=== PATIENT | male | born 1995 | race Caucasian/White ===

== ENCOUNTER 2020-10-10 08:28 | Emergency (ER) | payer MEDICAID, SELFPAY ==
[2020-10-10 08:28] VITALS: BP 112/76; PULSE 87; RESP 16; TEMP 36.6; O2SAT 98; BMI 29.0
--- NOTE | 2020-10-10 08:29 | ECG_ITS ---
[facility] Test Date: 2020-10-10 Pat Name: MARS SITER Department: Room: Gender: Male Manager Respiratory: : 1995 Requested By: Mauri Lugo Order Number: [id number] Reading MD: DESIREE GARCIA Measurements Intervals [place] Rate: 71 P: 58 CA: 178 QRS: 46 QRSD: 97 T: 51 QT: 357 QTc: 388 Interpretive Statements SINUS RHYTHM No previous ECG available for comparison Electronically Signed On 10-10-2020 20:17:05 CDT by DESIREE GARCIA [id number]
--- NOTE | 2020-10-10 08:32 | PC.NURSE ---
Seizure pads brought to patients room at this time. Physician reported no need for seizure pads at this time.
[2020-10-10 08:46] LABS: Basophils % 0.4 %; Eosinophils # 0.1 10^3/uL (0.0-0.8); Eosinophils % 1.4 %; Hemoglobin 16.6 g/dL (11.7-16.6); Lymphocytes # 1.3 10^3/uL (0.8-4.8); Lymphocytes % 17.3 %; Mean Corpuscular HGB Conc 34.6 g/dL (30.0-36.0); Mean Corpuscular Hemoglobin 29.9 pg (28.0-34.0); Mean Corpuscular Volume 86.5 fL (80-94); Mean Platelet Volume 10.8 fL (7.4-10.4); Monocytes # 0.7 10^3/uL (0.2-0.9); Monocytes % 9.1 %; Neutrophils # 5.45 10^3/uL (1.8-7.7); Neutrophils % 71.5 %; Nucleated Red Blood Cells % 0 %; Platelet Count 194 10^3/cmm (130-400); Red Blood Count 5.55 10^6/uL (4.1-5.3); Red Cell Distribution Width 11.8 % (12.1-15.1); White Blood Count 7.6 10^3/uL (4.0-10.0)
--- NOTE | 2020-10-10 08:53 | W.ED.SEIZURE ---
HPI - Seizure General: Chief Complaint: Seizure Stated Complaint: SEIZURE Time Seen by Provider: 10/10/20 08:28 History of Present Illness: HPI Narrative: 25-year-old male presents emergency room after having what he describes as a pseudoseizure. He states he gets is in response to anxiety. He did hit his head on the edge of a cabinet when he stood up this morning but did not lose consciousness he is not on any blood thinners. He is on Topamax and Keppra. He was previously evaluated in [place] by neurology and they had told him he had pseudoseizures. MD complaint: other (Pseudoseizures.) Onset (ago): minute(s) Witnessed: Yes - by Bystander Trauma: No Seizure History: No Place: Work Possible Precipitating Event: stress Associated symptoms: Deny chest pain, chills, confusion, cough, diaphoresis, fever(s), anorexia, malaise, rash, short of breath, syncope or weakness Treatments prior to arrival: none Review of Systems Const: Denies: fever(s), chills, malaise or diaphoresis ENMT: Denies: throat pain, ear or mastoid pain, nasal discharge or nasal congestion Card: Denies: chest pain or syncope Resp: Denies: dyspnea, productive cough or non-productive cough GI: Denies: abdominal pain, nausea, vomiting, hematemesis, coffee ground emesis, diarrhea, constipation, bloating, hematochezia or melena : Denies: flank pain, dysuria, urinary frequency or urinary urgency Skin/Breast: Denies: rash or pruritus Neuro: Denies: confusion Physical Exam Const: COMMON NORMALS: average body habitus, patient oriented x3 and alert GENERAL APPEARANCE: cooperative, comfortable, well kempt and well developed NUTRITIONAL APPEARANCE: obese ORIENTATION/CONSCIOUSNESS: Yes awake, Yes oriented to person and Yes oriented to place HENMT: COMMON NORMALS: normocephalic, atraumatic, EAC's normal, TM's normal bilaterally, Normal external nose present, moist oral mucous membranes and oropharynx normal HEAD & SCALP: normocephalic and atraumatic NOSE: Normal external nose present EXTERNAL AUDITORY CANAL: EAC's normal TYMPANIC MEMBRANE: TM's normal bilaterally MOUTH: Normal oral and palatal mucosa present, lip normal and tongue normal THROAT: posterior oropharynx normal and tonsils normal Eye: COMMON NORMALS: Equal, round and reactive pupils present, EOMs intact bilaterally, conjunctivae normal and no scleral icterus CONJUNCTIVA: Yes conjunctivae normal PUPIL: Yes Equal, round and reactive pupils present Neck/C-Spine: COMMON NORMALS: full ROM, no lymphadenopathy, supple, no meningeal signs and Thyroid normal THYROID: Thyroid normal and asymmetrical Lymph: LYMPHATIC: no lymphadenopathy noted Resp: COMMON NORMALS: normal respiratory effort, No retractions, No use of accessory muscles and clear to auscultation bilaterally AUSCULTATION: clear to auscultation bilaterally Cardio: COMMON NORMALS: regular rate and regular rhythm RATE: regular rate RHYTHM: regular rhythm HEART SOUNDS: no murmurs GI: COMMON NORMALS: Normal to inspection, nondistended, normoactive bowel sounds present, Soft to palpation and No hepatosplenomegaly present PALPATION: Yes Soft to palpation and Yes No hepatosplenomegaly present : COMMON NORMALS: Yes no CVA tenderness BLADDER/KIDNEY EXAM: Yes no CVA tenderness Back/Pelvis: COMMON NORMALS: no CVA tenderness LUMBAR SPINE/LOWER BACK: Yes normal to inspection Extremity: COMMON NORMALS: no clubbing, cyanosis or edema, no calf tenderness and no pedal edema Neuro: COMMON NORMALS: patient oriented x3 SENSORIUM/ORIENTATION: Yes alert, Yes oriented to person and Yes oriented to place MENINGEAL SIGNS: Yes no meningeal signs Psych: APPEARANCE: Yes well kempt Skin: COMMON NORMALS: no rashes or lesions noted and turgor normal GENERAL SKIN EXAM: no rashes or lesions noted and turgor normal Course Vital Signs: Vital signs: Vital Signs Temperature 97.8 F 10/10/20 08:28 Pulse Rate 72 10/10/20 09:30 Respiratory Rate 20 H 10/10/20 09:30 Blood Pressure 105/69 10/10/20 09:30 Pulse Oximetry 96 10/10/20 09:30 MDM - Seizure MDM Narrative: Medical decision making narrative: Patient readily admits he has pseudoseizures when I discussed with him he understands are precipitated by stress. He has had these before. He denies missing any medications he denies any change in medications. He recently moved here he does not have a neurologist locally. We will try to get him set up with the PCP and neurologist. Lab Data: Attestation: I reviewed the patient's lab results. Labs: Lab Results 10/10/20 10/10/20 Range/Units 08:00 08:00 WBC 7.6 (4.0-10.0) 10^3/ uL RBC 5.55 H (4.1-5.3) 10^6/u L Hgb 16.6 (11.7-16.6) g/dL Hct 48.0 (42.0-52.0) % MCV 86.5 (80-94) fL MCH 29.9 (28.0-34.0) pg MCHC 34.6 (30.0-36.0) g/dL RDW 11.8 L (12.1-15.1) % Plt Count 194 (130-400) 10^3/c mm MPV 10.8 H (7.4-10.4) fL Neut % (Auto) 71.5 % Lymph % (Auto) 17.3 % Reeves % (Auto) 9.1 % Eos % (Auto) 1.4 % Baso % (Auto) 0.4 % Neut # (Auto) 5.45 (1.8-7.7) 10^3/u L Lymph # (Auto) 1.3 (0.8-4.8) 10^3/u L Reeves # (Auto) 0.7 (0.2-0.9) 10^3/u L Eos # (Auto) 0.1 (0.0-0.8) 10^3/u L Baso # (Auto) 0.0 (0.0-0.1) 10^3/u L Nucleated RBC % (a uto) 0 % Nucleated RBCs # 0.0 /100WBC Sodium 141 (136-145) mmol/L Potassium 3.4 L (3.5-5.1) mmol/L Chloride 106 (98-107) mmol/L Carbon Dioxide 21 L (22-29) mmol/L Anion Gap 17.4 (5-19) BUN 11 (6-20) mg/dL Creatinine 1.1 (0.7-1.2) mg/dL GFR Calculation 83.0 L (90-130) mL/min Glucose 94 (65-115) mg/dL Calculated Osmolal ity 291 (285-295) mOsm/k g Calcium 9.4 (8.5-10.5) mg/dL Magnesium 2.2 (1.7-2.3) mg/dL Total Bilirubin 1.2 (0.15-1.2) mg/dL AST 17 (0-40) U/L ALT 27 (0-41) U/L Alkaline Phosphata se 77 (40-130) IU/L Creatine Kinase 91 (39-308) U/L Total Protein 7.2 (6.6-8.7) g/dL Albumin 4.8 (3.5-5.2) g/dL Globulin 2.4 (1.3-4.6) g/dL Discharge Plan Discharge Patient Disposition: Home Clinical Impression: Psychosomatic seizure Condition: Stable Discharge Orders: Discharge ED (Routine); Ordered 10/10/20 Ordered By: Mauri Godoy Discharge Diet: Usual diet Discharge Activity: Resume usual activity Patient Instructions: Opioid Safety Stand Alone Forms: Work/School Release Coding Level of Care Code ED Deputy Attorney General for Maurisio Fwd Exam Comprehensive
[2020-10-10 08:58] VITALS: BP 112/76; PULSE 73; RESP 18; O2SAT 97
[2020-10-10 09:03] LABS: Alanine Aminotransferase 27 U/L (0-41); Albumin Level 4.8 g/dL (3.5-5.2); Alkaline Phosphatase 77 IU/L (40-130); Anion Gap 17.4 (5-19); Aspartate Amino Transferase 17 U/L (0-40); Blood Urea Nitrogen 11 mg/dL (6-20); Calcium 9.4 mg/dL (8.5-10.5); Carbon Dioxide 21 mmol/L (22-29); Chloride 106 mmol/L (98-107); Creatine Phosphokinase 91 U/L (39-308); Globulin 2.4 g/dL (1.3-4.6); Glucose 94 mg/dL (65-115); Magnesium 2.2 mg/dL (1.7-2.3); Osmolality Calculated 291 mOsm/kg (285-295); Potassium 3.4 mmol/L (3.5-5.1); Sodium 141 mmol/L (136-145); Total Bilirubin 1.2 mg/dL (0.15-1.2); Total Protein 7.2 g/dL (6.6-8.7)
[2020-10-10 09:29] VITALS: BP 105/69; PULSE 90; RESP 18; O2SAT 95
[2020-10-10 09:30] VITALS: BP 105/69; PULSE 72; RESP 20; O2SAT 96
--- NOTE | 2020-10-12 12:54 | DCPLANNER ---
Addendum entered by Marilee Huetra 10/13/20 10:43: Patient called family service caseworker back, stating that he just moved here and does not have a primary care physician or insurance at this time. web services manager will mail both of the financial adviser applications to the patient to fill out and turn in. Patient will fill out the applications, and turn them in. Patient stated that when he found out where he was on the slide that he would call family service caseworker to get established with a primary care physician, and a referral to neurology. Original Note: web services manager had message to speak with patient about getting established with a primary care physician and about a referral to neurology. web services manager called phone number [phone], unable to speak with patient at this time, a voicemail was left for patient to return family caseworker phone call.
[2020-10-13 20:03] LABS: Levetiracetam Keppra 11.6 mcg/mL
== END 2020-10-10 09:29 | disposition home or self-care (01) ==
PROVIDERS: Emergency Provider Family Medicine
DX: G40.89 Other seizures (principal)
CPT/HCPCS: 80053; 80177; 82550; 83735; 85025; 93005; 99283

== ENCOUNTER → 2020-11-30 09:13 | Outpatient (BNVA) | payer OTHER, SELFPAY | PROVIDERS: Visit Provider Specialist | DX: G40.109 Localization-related (focal) (partial) symptomatic epilepsy and epileptic syndromes with simple partial seizures, not intractable, without status epilepticus (principal); G43.019 Migraine without aura, intractable, without status migrainosus; F17.210 Nicotine dependence, cigarettes, uncomplicated | CPT/HCPCS: 99204 ==

== ENCOUNTER 2020-12-06 12:42 | Emergency (ER) | payer OTHER, SELFPAY ==
[2020-12-06 12:58] VITALS: BP 106/68; PULSE 70; RESP 16; TEMP 36.6; O2SAT 98; BMI 26.4
[2020-12-06 13:46] VITALS: BP 107/70; PULSE 75; RESP 20; O2SAT 98
--- NOTE | 2020-12-06 13:48 | CT_ITS ---
WS: [id number] CT HEAD NONCONTRAST HISTORY: seizure, struck head TECHNIQUE: Contiguous axial imaging performed through the brain in 2.5 mm imaging. Bone and soft tiss ue windows. Sagittal and coronal reformats reviewed. All CT scans at [facility] use at le ast one of these dose optimization techniques: automated exposure control; mA and/or kV adjustment pe r patient size (includes targeted exams where dose is matched to clinical indication); or iterative r econstruction. DLP: 928.57 mGy.cm COMPARISON: None available. No acute intracranial hemorrhage, midline shift or mass effect. No atrophy or prior infarcts or herniation. Ventricles: Normal size with no hydrocephalus. Paranasal sinuses: As visualized are clear. Mastoid air cells: Well pneumatized. Calvarium and scalp: Skull is intact with no soft tissue edema or swelling. CT/CT head wo con* [id number] IMPRESSION: Negative head CT.
--- NOTE | 2020-12-06 13:49 | ED_ITS ---
HPI - Seizure General: Chief Complaint: Seizure Stated Complaint: POST SEIZURE Time Seen by Provider: 12/06/20 13:36 Source: patient Mode of arrival: ambulatory Limitations: no limitations History of Present Illness: HPI Narrative: Patient is a 25-year-old male who presents to ED today with a complaint of a seizure that happened at work. Patient states he was recently diagnosed with temporal lobe epilepsy by Dr. Dumont. He saw her in office 6 days ago. He states he is currently taking 1500 mg Keppra and 200 mg Topamax. He states while at work he began to develop a headache and left sided weakness. He states the next thing he knew he was waking up on the ground and coworkers stated he had had a seizure. He reports he was told he had generalized clonic tonic movements. He was told episode lasted approximately 1 to 2 minutes. He states he struck his head but was wearing a hard helmet. He did/currently experiencing post ictal confusion and a headache although this is improving. There was no report of cyanosis. No incontinence. He denies biting his tongue or other intra oral injury. MD complaint: seizure Onset (ago): hour(s) Description of Episode: loss of consciousness and tonic-clonic movement Witnessed: Yes - by Bystander Trauma: Yes (reports stuck head) Seizure History: Yes Place: Work Possible Precipitating Event: none Associated symptoms: Reports no associated symptoms; Deny chest pain, chills, fever(s), malaise or syncope Treatments prior to arrival: none Review of Systems Const: Denies: fever(s), chills, body aches, fatigue or malaise Eyes: Denies: change in vision, blurry vision, photophobia, floaters or seeing flashes Card: Denies: chest pain, palpitations, irregular heart rhythm, lightheadedness, syncope or dyspnea on exertion Resp: Denies: dyspnea, productive cough or pain on inspiration GI: Denies: abdominal pain, nausea, vomiting, heartburn or diarrhea : Denies: difficulty urinating or dysuria Musc: Denies: neck pain, back pain or joint pain Skin/Breast: Denies: rash Neuro: Reports: headache(s); Denies: numbness in extremities, weakness in extremities, sensory changes, difficulty walking, frequent falls, dizziness or Slurred speech present [facility] ED PFSH: Social History Smoking and tobacco status: current every day smoker cigarettes Alcohol intake: never History of recent travel: No Physical Exam Const: COMMON NORMALS: no acute distress, average body habitus, patient oriented x3, no limitations, healthy appearing, alert and well nourished GE NERAL APPEARANCE: cooperative ORIENTATION/CONSCIOUSNESS: Yes awake, Yes oriented to person, Yes oriented to place and Yes oriented to time HENMT: COMMON NORMALS: normocephalic, atraumatic, hearing grossly normal bilaterally, EAC's normal and TM's normal bilaterally HEAD & SCALP: normal to inspection, normocephalic and atraumatic FACE & SINUS: normal facial exam EXTERNAL AUDITORY CANAL: EAC's normal TYMPANIC MEMBRANE: TM's normal bilaterally Eye: COMMON NORMALS: Equal, round and reactive pupils present and EOMs intact bilaterally GENERAL EYE: appearance normal, both eyes and all related structures PUPIL: Yes Equal, round and reactive pupils present Neck/C-Spine: COMMON NORMALS: full ROM and no meningeal signs CERVICAL SPINE: No pain with cervical ROM and No Cervical spine tenderness Resp: COMMON NORMALS: normal respiratory effort and clear to auscultation bilaterally AUSCULTATION: clear to auscultation bilaterally Cardio: COMMON NORMALS: regular rate and regular rhythm RATE: regular rate RHYTHM: regular rhythm Back/Pelvis: COMMON NORMALS: thoracic and lumbar spine normal to inspection, no thoracic nor lumbar tenderness and thoraco-lumbar ROM normal Neuro: JUWAN COMA SCALE: document GCS findings [place] coma scale eye opening: Spontaneous [place] coma scale verbal response: Orientated [place] coma scale motor response: Obey commands [place] coma scale total score: 15 COMMON NORMALS: patient oriented x3, CN's II-XII intact bilaterally, moves all extremities, no focal motor deficits, no sensory deficits noted and gait normal SENSORIUM/ORIENTATION: Yes alert, Yes oriented to person, Yes oriented to place and Yes oriented to time MENINGEAL SIGNS: Yes no meningeal signs Skin: COMMON NORMALS: no rashes or lesions noted GENERAL SKIN EXAM: no ra shes or lesions noted TRAUMA: no lacerations or abrasions Course Consultations: Consultation #1: Dr. Dumont-will increase his Keppra to 2,250mg daily. She states she will take care of this medication and call into pharmacy. Vital Signs: Vital signs: Vital Signs Temperature 97.9 F 12/06/20 12:58 Pulse Rate 75 12/06/20 13:46 Respiratory Rate 20 H 12/06/20 13:46 Blood Pressure 107/70 12/06/20 13:46 Pulse Oximetry 98 12/06/20 13:46 MDM - Seizure MDM Narrative: Medical decision making narrative: Patient is a 25-year-old male here for another seizure that occurred at work today. Patient has followed up with Dr. Dumont and has been diagnosed with temporal lobe epilepsy. Patient states he struck his head during the episode today. He was complaining of a headache although this is not uncommon post ictal. CT imaging obtained and negative. Labs were not obtained as patient has had these episodes several times previously and would unlikely overall change of address clerk. I have spoken to Dr. Dumont who will increase his Keppra. Return to ED precautions given. Otherwise please follow-up with neurology as scheduled. Imaging Data^: CT Head: Radiologist's impression: [address] [id number] Scan ReportSigned Patient: Brandt Murcia #: [id number]: 1995Acct#:[id number]/Sex: 25 / MADM Date: 12/06/20Loc: ERRoom/Bed:Attending Dr: Ordering Provider/Ordering MD: Stephani Sutton Date of Service: 12/06/20 Procedure(s): CT head wo con* [id number] Accession Number(s): [id number] Report Number: [id number] WS: [id number] CT HEAD NONCONTRAST HISTORY: seizure, struck head TECHNIQUE: Contiguous axial imaging performed through the brain in 2.5 mm imaging. Bone and soft tissue windows. Sagittal and coronal reformats reviewed. All CT scans at [facility] use at least one of these dose optimization techniques: automated exposure control; mA and/or kV adjustment per patient size (includes targeted exams where dose is matched to clinical indication); or iterative reconstruction. DLP: 928.57 mGy.cm COMPARISON: None available. No acute intracranial hemorrhage, midline shift or mass effect. No atrophy or prior infarcts or herniation. Ventricles: Normal size with no hydrocephalus. Paranasal sinuses: As visualized are clear. Mastoid air cells: Well pneumatized. Calvarium and scalp: Skull is intact with no soft tissue edema or swelling. CT/CT head wo con* [id number] IMPRESSION: Negative head CT. Dictated By:Johanna Dupont DOSigned By:Johanna Dupont DOSigned Date/Time:12/06/208DD/ 25 Discharge Plan Discharge Patient Disposition: Home Clinical Impression: Temporal lobe epilepsy Condition: Stable Prescriptions: No Action topiramate [Topamax] 100 mg tablet 100 mg PO BID Qty: 60 RF: 2 midazolam 5 mg/spray (0.1 mL) spray,non-aerosol 5 mg intranasal ONCE Qty: 1 RF: 2 levetiracetam [Keppra XR] 750 mg tablet extended release 24 hr 2,250 mg PO DAILY Qty: 90 RF: 5 Discharge Orders: Discharge ED (Routine); Ordered 12/06/20 Ordered By: Stephani Sutton Referrals: No Issa, RN [Primary Care Provider] - Patient Instructions: Epilepsy (ED), Seizures Activity Restrictions/Additional Instructions: As we discussed I have spoken to Dr. Dumont and we will increase your Keppra to 3 tabs daily (2,250 mg). You need to return to the emergency department for any further seizure episodes. Please follow-up with Dr. Dumont as scheduled. Stand Alone Forms: Work/School Release Coding Level of Care Code ED Advertising Statistical Clerk for Dedeg Fwd Exam Comprehensive
--- NOTE | 2020-12-06 14:49 | PM.MISC ---
Miscellaneous Note Purpose of Documentation: ER visit for generalized seizure Note: Stephani Sutton called from the emergency department. The patient was at work when he had severe headache followed by left-sided weakness followed by generalized tonic-clonic seizure. He has been on the increased dose of Keppra 750 mg XR for 6 days. Plan to increase to 2250 mg (750 mg ER 3 tablets daily) and I sent a new prescription. Midazolam spray was also added the last time.
== END 2020-12-06 15:10 | disposition home or self-care (01) ==
PROVIDERS: Emergency Provider Physician Assistant
DX: G40.802 Other epilepsy, not intractable, without status epilepticus (principal); F17.210 Nicotine dependence, cigarettes, uncomplicated
CPT/HCPCS: 70450; 99282

== ENCOUNTER → 2020-12-12 12:07 | Outpatient (BNVA) | payer OTHER, SELFPAY | PROVIDERS: Visit Provider Specialist | DX: G40.109 Localization-related (focal) (partial) symptomatic epilepsy and epileptic syndromes with simple partial seizures, not intractable, without status epilepticus (principal); G43.019 Migraine without aura, intractable, without status migrainosus; F17.210 Nicotine dependence, cigarettes, uncomplicated | CPT/HCPCS: 99215 ==

== ENCOUNTER → 2020-12-13 12:38 | Outpatient (BNVA) | payer OTHER, SELFPAY | PROVIDERS: Referring Provider Specialist; Visit Provider Specialist | DX: G40.109 Localization-related (focal) (partial) symptomatic epilepsy and epileptic syndromes with simple partial seizures, not intractable, without status epilepticus (principal); G40.909 Epilepsy, unspecified, not intractable, without status epilepticus; F17.210 Nicotine dependence, cigarettes, uncomplicated | CPT/HCPCS: 95816 ==

== ENCOUNTER 2020-12-14 12:15 | Outpatient (CLI) | payer OTHER, SELFPAY ==
[2020-12-14 12:50] LABS: Basophils % 0.5 %; Eosinophils # 0.3 10^3/uL (0.0-0.8); Eosinophils % 5.5 %; Hematocrit 45.7 % (42.0-52.0); Hemoglobin 15.5 g/dL (11.7-16.6); Lymphocytes # 1.1 10^3/uL (0.8-4.8); Lymphocytes % 17.2 %; Mean Corpuscular HGB Conc 33.9 g/dL (30.0-36.0); Mean Corpuscular Hemoglobin 30.2 pg (28.0-34.0); Mean Corpuscular Volume 88.9 fL (80-94); Mean Platelet Volume 10.7 fL (7.4-10.4); Monocytes # 0.4 10^3/uL (0.2-0.9); Monocytes % 6.5 %; Neutrophils # 4.27 10^3/uL (1.8-7.7); Neutrophils % 69.2 %; Nucleated Red Blood Cells % 0 %; Platelet Count 184 10^3/cmm (130-400); Red Blood Count 5.14 10^6/uL (4.1-5.3); White Blood Count 6.2 10^3/uL (4.0-10.0)
[2020-12-18 11:02] LABS: Levetiracetam Keppra 27.8 mcg/mL
== END 2020-12-14 12:16 | disposition home or self-care (01) ==
PROVIDERS: Visit Provider Specialist
DX: G40.109 Localization-related (focal) (partial) symptomatic epilepsy and epileptic syndromes with simple partial seizures, not intractable, without status epilepticus (principal)
CPT/HCPCS: 36415; 80177; 85025

== ENCOUNTER 2020-12-19 07:04 | Outpatient (CLI) | payer OTHER, SELFPAY ==
--- NOTE | 2020-12-19 07:15 | MR_ITS ---
WS: [id number] MRI BRAIN WITHOUT CONTRAST HISTORY: R56.9 - Unspecified convulsions COMPARISON: CT 12/06/2020 TECHNIQUE: Diffusion imaging, multiplanar T1, T2 and FLAIR imaging obtained. No evidence for acute infarct or hemorrhage. [place]-white matter differentiation is normal. Normal appe arance of the cortex. No abnormality of the gyral pattern or ectopia of [place] or white matter. No remote or acute infarcts are volume loss. Ventricles and extra-axial spaces are normal. No inferior displacement of cerebellar tonsils. The sella turcica and pituitary gland are unremarkabl e. Posterior fossa is also unremarkable. Dural venous sinuses and ak chin of [place] demonstrate no abnormality on this unenhanced studies. Paranasal sinuses: Large mucous retention cyst in the RIGHT maxillary sinus. Mastoid air cells: Normal. Calvarium and scalp: Intact. MR/MR head wo con* [id number] IMPRESSION: 1. Unremarkable noncontrast MRI brain.
== END 2020-12-19 07:05 | disposition home or self-care (01) ==
LOC: RADSHAW 07:07
PROVIDERS: Visit Provider Specialist
DX: R56.9 Unspecified convulsions (principal)
CPT/HCPCS: 70551

== ENCOUNTER → 2021-02-12 08:00 | Outpatient (BNVA) | payer OTHER, SELFPAY | PROVIDERS: Visit Provider Specialist | DX: G40.109 Localization-related (focal) (partial) symptomatic epilepsy and epileptic syndromes with simple partial seizures, not intractable, without status epilepticus (principal); F17.210 Nicotine dependence, cigarettes, uncomplicated | CPT/HCPCS: 99213 ==

== ENCOUNTER 2021-03-29 17:09 | Emergency (ER) | payer SELFPAY ==
[2021-03-29 17:24] VITALS: BP 122/75; PULSE 86; RESP 18; TEMP 37.1; O2SAT 100; BMI 25.7
[2021-03-29 18:05] VITALS: BP 114/63; PULSE 59; O2SAT 99
[2021-03-29] MEDS: diphenhydrAMINE 50 mg Capsule PO (18:23)
--- NOTE | 2021-03-29 18:24 | W.ED.HA ---
HPI - Headache General: Chief Complaint: Headache Stated Complaint: SEVERE HEADACHE (6 DAYS) Time Seen by Provider: 03/29/21 17:40 History of Present Illness: HPI Narrative: Patient is a 26-year-old male with a past medical history of frontal lobe epilepsy and migraines. He is here with complaints of headache. States that headache is mostly on the crown in the occiput of his head. Is been off and on for the last 2 weeks. Was gradual in onset is responded well to Excedrin but goes away. He is not the worst headache of his life and was not sudden onset. Does not have any history of AVMs or aneurysm. Is currently taking Topamax and Keppra for seizure disorder. Is fairly uncontrolled. His last seizure was last Friday states it is similar to his previous seizures with the exception that he did not have a are at this time. Is under the care of a local neurologist. Not have any history of clotting disorders and is not anticoagulated States pain is mild to moderate cramping and dull. Worse with light and loud noises not brought on by exertion or sexual activity Denies fevers chills chest pain nausea vomiting diarrhea altered mental status or syncope Review of Systems General: Reports: 10 or more systems reviewed and unremarkable except in HPI and below PFSH ED PFSH: Social History Smoking and tobacco status: current every day smoker cigarettes Alcohol intake: never History of recent travel: No Physical Exam Const: COMMON NORMALS: no acute distress, average body habitus, patient oriented x3 and alert ORIENTATION/CONSCIOUSNESS: Yes oriented to person and Yes oriented to place HENMT: COMMON NORMALS: normocephalic and atraumatic HEAD & SCALP: normocephalic, atraumatic, scalp tenderness (Moderate tenderness to palpation in the greater occipital area) and other Eye: COMMON NORMALS: Equal, round and reactive pupils present and EOMs intact bilaterally PUPIL: Yes Equal, round and reactive pupils present Neck/C-Spine: COMMON NORMALS: no meningeal signs Resp: COMMON NORMALS: normal respiratory effort Cardio: COMMON NORMALS: regular rate and regular rhythm RATE: regular rate RHYTHM: regular rhythm GI: COMMON NORMALS: Normal to inspection, nondistended, normoactive bowel sounds present Neuro: DOC COMA SCALE: document GCS findings Doc coma scale eye opening: Spontaneous Doc coma scale verbal response: Orientated [place] coma scale motor response: Obey commands [place] coma scale total score: 15 COMMON NORMALS: patient oriented x3, CN's II-XII intact bilaterally, no focal motor deficits, no sensory deficits noted and deep tendon reflexes 2+ bilaterally SENSORIUM/ORIENTATION: Yes alert, Yes oriented to person and Yes oriented to place MENINGEAL SIGNS: Yes no meningeal signs, No nuccal rigidity, No Brudzinski's sign present and No Kernig's sign presnet Psych: COMMON NORMALS: mental status grossly normal Skin: COMMON NORMALS: no rashes or lesions noted, no wounds and turgor normal GENERAL SKIN EXAM: no rashes or lesions noted and turgor normal Procedures Nerve Block Nerve Block 1: Time out performed: Yes Local Anesthetic: bupivacaine 0.5% Amount of anesthesia used (mL): 4 Side: left and right Nerve Blocks: occipital Procedure Successful: Yes Patient Tolerated Procedure: well Complications: none Course ED course: Patient tolerated nerve block well. Will give medications and reassess Vital Signs: Vital signs: Vital Signs Temperature 98.7 F 03/29/21 17:24 Pulse Rate 59 L 03/29/21 18:05 Respiratory Rate 18 03/29/21 17:24 Blood Pressure 114/63 03/29/21 18:05 Pulse Oximetry 99 03/29/21 18:05 MDM - Headache MDM Narrative: Medical decision making narrative: Patient is a 26-year-old male with chronic headaches. Differential includes migraine, occipital neuralgia, complicated migraine, subarachnoid hemorrhage, venous sinus thrombosis, This is not the worst headache of headache of his life it is chronic in nature was not sudden onset. Think there is a's especially small chance of a subarachnoid or venous thrombosis did not think imaging is warranted at this time. Does have tenderness in the greater occipital region so I think this is more of a greater occipital neuralgia. Will do a bilateral greater occipital nerve block for him. Will also treat him with Toradol Compazine Benadryl and Decadron to try to prophylactically prevent return. Patient's medications seem to improve his symptoms quite a bit. Can is a mostly pain-free. Tolerated procedure medicine well we will go ahead and discharge at this time have him follow-up with his primary care provider and give him return instructions Discharge Plan Discharge Prescriptions: No Action topiramate [Topamax] 100 mg tablet 100 mg PO BID Qty: 60 RF: 5 levetiracetam [Keppra XR] 750 mg tablet extended release 24 hr 2,250 mg PO DAILY Qty: 90 RF: 5 midazolam 5 mg/spray (0.1 mL) spray,non-aerosol 5 mg intranasal ONCE Qty: 1 RF: 2 Coding Level of Care Code ED Senior Sql Server Developer for Dedeg Fwd Exam Comprehensive
[2021-03-29] MEDS: prochlorperazine 10 mg/2 mL Inj IV (18:25)
[2021-03-29] MEDS: ketorolac 30 mg/mL INJ 15 MG IVP (18:27)
[2021-03-29] MEDS: dexamethasone 10 mg/mL INJ IM (18:30)
[2021-03-29 19:49] VITALS: BP 118/78; PULSE 70; RESP 18; O2SAT 99
== END 2021-03-29 19:45 | disposition home or self-care (01) ==
PROVIDERS: Emergency Provider Family Medicine
DX: R51.9 Headache, unspecified (principal); F17.210 Nicotine dependence, cigarettes, uncomplicated
CPT/HCPCS: 96372; 96374; 96375; 99283; J0780; J1100; J1885; J3490; Q0163

== ENCOUNTER 2021-04-20 12:52 | Outpatient (CLI) | payer BC, SELFPAY | END 2021-04-20 12:53 | disposition home or self-care (01) | LOC: LAB 12:57 | PROVIDERS: Visit Provider Specialist | DX: G40.109 Localization-related (focal) (partial) symptomatic epilepsy and epileptic syndromes with simple partial seizures, not intractable, without status epilepticus (principal) | CPT/HCPCS: 36415; 80177 ==

== ENCOUNTER → 2021-04-26 13:57 | Outpatient (BNVA) | payer BC, SELFPAY | PROVIDERS: Referring Provider Specialist; Visit Provider Specialist | DX: G40.109 Localization-related (focal) (partial) symptomatic epilepsy and epileptic syndromes with simple partial seizures, not intractable, without status epilepticus (principal); G40.409 Other generalized epilepsy and epileptic syndromes, not intractable, without status epilepticus; F17.210 Nicotine dependence, cigarettes, uncomplicated | CPT/HCPCS: 95816 ==

== ENCOUNTER 2021-10-23 13:11 | Emergency (ER) | payer OTHER, SELFPAY ==
--- NOTE | 2021-10-23 13:15 | ECG_ITS ---
[facility] Test Date: 2021-10-23 Pat Name: Rakesh Murcia Department: Room: Gender: Male Criminal Psychologist: : 1995 Requested By: Marino Goins Order Number: [id number] Marsha MD: Shanice Rajput M.D. Measurements Intervals [place] Rate: 71 P: 51 MD: 185 QRS: 65 QRSD: 92 T: 59 QT: 358 QTc: 389 Interpretive Statements SINUS RHYTHM POSSIBLE RIGHT VENTRICULAR CONDUCTION DELAY [RSR (QR) IN V1/V2] Compared to ECG 10/10/2020 08:58:26 No significant changes Electronically Signed On 10-23-2021 18:37:49 CDT by Shanice Rajput M.D. [id number]
[2021-10-23 13:18] VITALS: BP 126/84; PULSE 86; RESP 15; O2SAT 97
--- NOTE | 2021-10-23 13:26 | W.ED.GENADLT ---
HPI - General Adult General: Chief complaint: Seizure Stated complaint: SEIZURE Time Seen by Provider: 10/23/21 13:14 History of Present Illness: HPI: [26]yo patient w/ hx of epilespy on keppra and topamax BIBA to the ED with breakthrough episode of the seizure with unknown duration which occurred 1 hrs ago at work. The incident was witnessed entirely by the patient's coworkers while was sitting down in a chair, and the family denied LOC per EMS. En route, the patient had a fingerstick glucose of 104 and was back to baseline. HDS without any signs of focal neurological deficits. On arrival, the patient is AAOx3, GCS of 15 and answering all questions. The patient denies any associated chest pain, shortness of breath, palpitations, or any focal pain in the arms and legs. Patient is followed by Dr. Dumont from Neurology. Onset: 1 hr ago minutes ago Duration: x1 episode lasting for 60 seconds Location: work Severity: moderate Associated symptoms: Reports headache(s); Deny chest pain, dyspnea, nausea, rash, palpitations or vomiting Review of Systems Const: Denies: fever(s) or chills Eyes: Denies: change in vision ENMT: Denies: mouth pain Card: Denies: chest pain or palpitations Resp: Denies: dyspnea or non-productive cough GI: Denies: abdominal pain, nausea, vomiting or diarrhea : Denies: dysuria Musc: Denies: extremity pain Skin/Breast: Denies: rash or new lesions Neuro: Reports: headache(s) and other (+seizure); Denies: weakness in extremities Psych: Reports: other (Normal mood) Hi/Lymph: Denies: easy bruising PFS ED PFSH: Medical History (Updated 10/23/21 @ 13:32 by Marino Goins MD) Epilepsy Social History Smoking and tobacco status: current every day smoker cigarettes Alcohol intake: never History of recent travel: No Physical Exam Const: COMMON NORMALS: alert HENMT: COMMON NORMALS: atraumatic HEAD & SCALP: atraumatic MOUTH: moist mucous membranes not abnormal Eye: COMMON NORMALS: EOMs intact bilaterally and conjunctivae normal CONJUNCTIVA: Yes conjunctivae normal Neck/C-Spine: COMMON NORMALS: full ROM and supple Resp: COMMON NORMALS: normal respiratory effort and clear to auscultation bilaterally AUSCULTATION: clear to auscultation bilaterally Cardio: COMMON NORMALS: regular rate RATE: regular rate GI: COMMON NORMALS: Soft to palpation and non-tender PALPATION: Yes Soft to palpation Extremity: COMMON NORMALS: full ROM Neuro: SENSORIUM/ORIENTATION: Yes alert MOTOR EXAM: No Abnormal motor strength present and Other motor observations present (no focal motor deficits) Psych: COMMON NORMALS: speech normal SPEECH: Yes normal speech MOOD & AFFECT: Yes euthymic mood Course Vital Signs: Vital signs: Vital Signs Pulse Rate 86 10/23/21 13:18 Respiratory Rate 15 10/23/21 13:18 Blood Pressure 126/84 10/23/21 13:18 Pulse Oximetry 97 10/23/21 13:18 MDM - General Adult Medical Decision Making [26]yo patient w/ known hx of seizure on keppra and topamax BIBA after an episode of seizure with unknown duration which occurred 1 hr ago. Back to baseline on arrival, AAOX3 with non-focal neuro exam. HDS. Exam revealed no focal trauma/deformity/bruises.The episode of seizure was witnessed and without any trauma/injury to the head. No immunosuppression hx and without preceding fever. No history of alcohol abuse or suspicion for toxin ingestion. Hx of prior seizure likely breakthrough seizure in the setting of medication change/non-compliance. H No lips/tongue lacerations. No visible bowel/bladder incontinence Airway protected. No drooling. Sats > 95%. Unlikely to be stroke, neurogenic syncope, acute delirium, intracranial tumor/mass, intracranial bleed, SAH/subdural hematoma/epidural hematoma, meningitis, or intracranial abscess, or from alcohol withdrawal. EMS Interventions: None POC glucose: wnl ED Interventions: 1g of keppra, PO challenge, serial reassessment EKG: No e/o STEMI. No evidence of Brugada?s sign, delta wave, epsilon wave, significantly prolonged QTc, or malignant arrhythmia. Lab findings: Electrolytes including K wnl. [2:04pm] On reassessment, patient back to baseline. In the ED, the patient received 1g of keppra in the ED. No other witnessed episodes of seizure while the patient was observed in the ED. Neuro exam is non focal. Patient tolerated PO in the ED and was able to ambulate without difficulties. 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 Patient has an appointment with Dr. Dumont in 2 weeks. We will increase his keppra dose to 1000mg TID to ensure he does not have any breakthrouhg seizures. Rx keppra 1000mg TID for seizure Disposition: Discharge. Patient is given instruction for follow-up with PCP and Neurology in the next 24-48 hours. Given seizure precautions including no driving, swimming, or bathing until the patient is fully evaluated by specialists. Lab Data : 10/23/21 13:00 10/23/21 13:00 Laboratory Results WBC 6.0 10^3/uL (4.0-10.0) 10/23/21 13:00 RBC 5.28 10^6/uL (4.1-5.3) 10/23/21 13:00 Hgb 15.8 g/dL (11.7-16.6) 10/23/21 13:00 Hct 46.8 % (42.0-52.0) 10/23/21 13:00 MCV 88.6 fl (80-94) 10/23/21 13:00 MCH 29.9 pg (28.0-34.0) 10/23/21 13:00 MCHC 33.8 g/dL (30.0-36.0) 10/23/21 13:00 RDW 12.5 % (12.1-15.1) 10/23/21 13:00 Plt Count 190 10^3/cmm (130-400) 10/23/21 13:00 MPV 10.6 fL (7.4-10.4) H 10/23/21 13:00 Neut % (Auto) 52.4 % 10/23/21 13:00 Lymph % (Auto) 33.2 % 10/23/21 13:00 [place] % (Auto) 9.8 % 10/23/21 13:00 Eos % (Auto) 3.7 % 10/23/21 13:00 Baso % (Auto) 0.7 % 10/23/21 13:00 Neut # (Auto) 3.14 10^3/uL (1.8-7.7) 10/23/21 13:00 Lymph # (Auto) 2.0 10^3/uL (0.8-4.8) 10/23/21 13:00 [place] # (Auto) 0.6 10^3/uL (0.2-0.9) 10/23/21 13:00 Eos # (Auto) 0.2 10^3/uL (0.0-0.8) 10/23/21 13:00 Baso # (Auto) 0.0 10^3/uL (0.0-0.1) 10/23/21 13:00 Nucleated RBC % (auto) 0 % 10/23/21 13:00 Nucleated RBCs # 0.0 /100WBC 10/23/21 13:00 Sodium 141 mmol/L (136-145) 10/23/21 13:00 Potassium 3.5 mmol/L (3.5-5.1) 10/23/21 13:00 Chloride 106 mmol/L (98-107) 10/23/21 13:00 Carbon Dioxide 19 mmol/L (22-29) L 10/23/21 13:00 Anion Gap 19.5 (5-19) H 10/23/21 13:00 BUN 9 mg/dL (6-20) 10/23/21 13:00 Creatinine 1.0 mg/dL (0.7-1.2) 10/23/21 13:00 GFR Calculation 91.8 mL/min (90-130) 10/23/21 13:00 Glucose 95 mg/dL (65-115) 10/23/21 13:00 Calculated Osmolality 290 mOsm/kg (285-295) 10/23/21 13:00 Calcium 9.5 mg/dL (8.5-10.5) 10/23/21 13:00 Total Bilirubin 1.0 mg/dL (0.15-1.2) 10/23/21 13:00 AST 14 U/L (0-40) 10/23/21 13:00 ALT 16 U/L (0-41) 10/23/21 13:00 Alkaline Phosphatase 73 IU/L (40-130) 10/23/21 13:00 Total Protein 7.5 g/dL (6.6-8.7) 10/23/21 13:00 Albumin 5.0 g/dL (3.5-5.2) 10/23/21 13:00 Globulin 2.5 g/dL (1.3-4.6) 10/23/21 13:00 Lipase 23 U/L (13-60) 10/23/21 13:00 Discharge Plan Discharge Patient Disposition: Home Clinical Impression: Seizure Condition: Stable Prescriptions: New Keppra 1,000 mg tablet 1,000 mg PO TID 21 Days Qty: 63 0RF No Action ibuprofen 200 mg Tablet 800 mg PO Q6H PRN (Reason: Pain) 0RF topiramate [Topamax] 100 mg tablet 200 mg PO BEDTIME 0RF Keppra XR 750 mg tablet extended release 24 hr 2,250 mg PO BEDTIME 0RF Discharge Orders: Discharge ED (Routine); Ordered 10/23/21 Ordered By: Marino Goins Referrals: No Issa, RN [Primary Care Provider] - Discharge Diet: Advance as tolerated Discharge Activity: Increase activity as tolerated Activity Restrictions/Additional Instructions: Please come back to the emergency room for any more breakthrough episodes of seizure. Come back if any weakness in her arms, drooling, difficulty speaking, any neurological symptoms. Please do not swim bathe or drive a vehicle unattended. 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
[2021-10-23 13:31] LABS: Basophils % 0.7 %; Eosinophils # 0.2 10^3/uL (0.0-0.8); Eosinophils % 3.7 %; Hematocrit 46.8 % (42.0-52.0); Hemoglobin 15.8 g/dL (11.7-16.6); Lymphocytes % 33.2 %; Mean Corpuscular HGB Conc 33.8 g/dL (30.0-36.0); Mean Corpuscular Hemoglobin 29.9 pg (28.0-34.0); Mean Corpuscular Volume 88.6 fl (80-94); Mean Platelet Volume 10.6 fL (7.4-10.4); Monocytes # 0.6 10^3/uL (0.2-0.9); Monocytes % 9.8 %; Neutrophils # 3.14 10^3/uL (1.8-7.7); Neutrophils % 52.4 %; Nucleated Red Blood Cells % 0 %; Platelet Count 190 10^3/cmm (130-400); Red Blood Count 5.28 10^6/uL (4.1-5.3); Red Cell Distribution Width 12.5 % (12.1-15.1)
[2021-10-23] MEDS: sodium chloride 0.9% 1,000 ML 999 ML IV (13:31)
[2021-10-23 13:50] LABS: Alanine Aminotransferase 16 U/L (0-41); Alkaline Phosphatase 73 IU/L (40-130); Anion Gap 19.5 (5-19); Aspartate Amino Transferase 14 U/L (0-40); Blood Urea Nitrogen 9 mg/dL (6-20); Calcium 9.5 mg/dL (8.5-10.5); Carbon Dioxide 19 mmol/L (22-29); Chloride 106 mmol/L (98-107); Globulin 2.5 g/dL (1.3-4.6); Glomerular Filtration Rate 91.8 mL/min (90-130); Glucose 95 mg/dL (65-115); Lipase 23 U/L (13-60); Osmolality Calculated 290 mOsm/kg (285-295); Potassium 3.5 mmol/L (3.5-5.1); Sodium 141 mmol/L (136-145); Total Protein 7.5 g/dL (6.6-8.7)
== END 2021-10-23 14:07 | disposition home or self-care (01) ==
LOC: ER 13:44
PROVIDERS: Emergency Provider Emergency Medicine
DX: R56.9 Unspecified convulsions (principal); F17.210 Nicotine dependence, cigarettes, uncomplicated
CPT/HCPCS: 80053; 83690; 85025; 93005; 96361; 96374; 99283; J1953; J7030

== ENCOUNTER 2022-01-01 14:50 | Emergency (ER) | payer OTHER, SELFPAY ==
[2022-01-01 14:52] VITALS: BP 117/79; PULSE 108; RESP 18; TEMP 36.7; O2SAT 97; BMI 28.3
[2022-01-01 15:01] VITALS: BP 115/78; PULSE 105; RESP 16; O2SAT 96
[2022-01-01 15:31] LABS: Basophils % 0.6 %; Eosinophils # 0.1 10^3/uL (0.0-0.8); Eosinophils % 2.7 %; Hematocrit 44.8 % (42.0-52.0); Hemoglobin 15.7 g/dL (11.7-16.6); Lymphocytes # 1.5 10^3/uL (0.8-4.8); Lymphocytes % 29.5 %; Mean Corpuscular Hemoglobin 30.4 pg (28.0-34.0); Mean Corpuscular Volume 86.7 fl (80-94); Mean Platelet Volume 10.4 fL (7.4-10.4); Monocytes # 0.4 10^3/uL (0.2-0.9); Monocytes % 8.5 %; Neutrophils # 3.03 10^3/uL (1.8-7.7); Neutrophils % 58.5 %; Nucleated Red Blood Cells % 0 %; Platelet Count 191 10^3/cmm (130-400); Red Blood Count 5.17 10^6/uL (4.1-5.3); Red Cell Distribution Width 11.7 % (12.1-15.1); White Blood Count 5.2 10^3/uL (4.0-10.0)
--- NOTE | 2022-01-01 15:32 | W.ED.SEIZURE ---
HPI - Seizure General: Chief Complaint: Seizure Stated Complaint: SEIZURE Time Seen by Provider: 01/01/22 15:03 Source: patient Mode of arrival: ambulatory Limitations: no limitations History of Present Illness: HPI Narrative: 26-year-old male presents emergency room after a seizure. Patient has a known history of temporal lobe seizures states he has about 3 to 4/year. His last seizure was in September of this year. Prior to that was in April. 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 He was found unresponsive given 2 days milligrams Ativan on arrival here he is awake and able to answer questions in fairly good detail. There is no recent medication changes denies any recent use of alcohol or any other drugs or new prescriptions or dose adjustments of his antiseizure medicines. He has not missed any doses recently. He has not otherwise been ill. He reports he has been getting enough sleep. MD complaint: seizure Witnessed: No Trauma: No Seizure History: Yes Place: Work Possible Precipitating Event: none Associated symptoms: Deny chest pain, chills, confusion, cough, diaphoresis, fever(s), anorexia, malaise, rash, short of breath, syncope or weakness Treatments prior to arrival: none Review of Systems Const: Denies: fever(s), chills, fatigue, malaise or diaphoresis ENMT: Denies: throat pain, ear or mastoid pain, nasal discharge or nasal congestion Card: Denies: chest pain or syncope Resp: Denies: dyspnea, productive cough or non-productive cough GI: Denies: abdominal pain, nausea, vomiting, hematemesis, coffee ground emesis, diarrhea, constipation, bloating, hematochezia or melena : Denies: flank pain, difficulty urinating, dysuria, urinary frequency or urinary urgency Skin/Breast: Denies: rash or pruritus Neuro: Denies: confusion PFSH ED PFSH: Medical History Epilepsy Social History Smoking and tobacco status: current every day smoker cigarettes Alcohol intake: never History of recent travel: No Physical Exam Const: COMMON NORMALS: no acute distress GENERAL APPEARANCE: cooperative and comfortable ORIENTATION/CONSCIOUSNESS: Yes awake, Yes oriented to person, Yes oriented to place and Yes oriented to time HENMT: COMMON NORMALS: normocephalic, atraumatic and hearing grossly normal bilaterally HEAD & SCALP: normocephalic and atraumatic Eye: COMMON NORMALS: Equal, round and reactive pupils present, EOMs intact bilaterally, conjunctivae normal and no scleral icterus CONJUNCTIVA: Yes conjunctivae normal PUPIL: Yes Equal, round and reactive pupils present Neck/C-Spine: COMMON NORMALS: full ROM, no lymphadenopathy, supple and no JVD Resp: COMMON NORMALS: normal respiratory effort, No retractions, No use of accessory muscles and clear to auscultation bilaterally AUSCULTATION: clear to auscultation bilaterally Cardio: COMMON NORMALS: no JVD, regular rate, regular rhythm and No murmurs present (Cardio) RATE: regular rate RHYTHM: regular rhythm GI: COMMON NORMALS: Soft to palpation and No hepatosplenomegaly present AUSCULTATION: Yes normoactive bowel sounds PALPATION: Yes Soft to palpation, No Tenderness to palpation present (GI), No Guarding due to palpation present (GI) and Yes No hepatosplenomegaly present Extremity: COMMON NORMALS: normal to inspection, capillary refill normal, no clubbing, cyanosis or edema, no calf tenderness and no pedal edema Neuro: SENSORIUM/ORIENTATION: Yes oriented to person, Yes oriented to place and Yes oriented to time Skin: COMMON NORMALS: no rashes or lesions noted GENERAL SKIN EXAM: no rashes or lesions noted Course Vital Signs: Vital signs: Vital Signs Temperature 98.1 F 01/01/22 14:52 Pulse Rate 86 01/01/22 15:39 Respiratory Rate 16 01/01/22 15:01 Blood Pressure 125/73 01/01/22 15:39 Pulse Oximetry 97 01/01/22 15:39 MDM - Seizure MDM Narrative Medical decision making narrative: Patient reports in the past he has had seizures in sequential nature like this before even to a much greater extent in the last year or so it has been far better controlled. He is still on pace to about have 3-4 breakthrough seizures per year by the history is given. He still feels like they are much better controlled than they were before he started seeing Dr. Dumont. Did call and talk to Dr. Dumont she recommended that we increase the Keppra to 37 to 50 mg at bedtime daily. Patient just had a prescription filled so he has plenty of pills at the moment. We will discharge him home have him follow-up with Dr. Dumont's office for further medication adjustments pending the results of the lab levels drawn today return if has further problems. Lab Data Result diagrams: 01/01/22 15:09 01/01/22 15:09 Labs: Laboratory Results WBC 5.2 10^3/uL (4.0-10.0) 01/01/22 15:09 RBC 5.17 10^6/uL (4.1-5.3) 01/01/22 15:09 Hgb 15.7 g/dL (11.7-16.6) 01/01/22 15:09 Hct 44.8 % (42.0-52.0) 01/01/22 15:09 MCV 86.7 fl (80-94) 01/01/22 15:09 MCH 30.4 pg (28.0-34.0) 01/01/22 15:09 MCHC 35.0 g/dL (30.0-36.0) 01/01/22 15:09 RDW 11.7 % (12.1-15.1) L 01/01/22 15:09 Plt Count 191 10^3/cmm (130-400) 01/01/22 15:09 MPV 10.4 fL (7.4-10.4) 01/01/22 15:09 Neut % (Auto) 58.5 % 01/01/22 15:09 Lymph % (Auto) 29.5 % 01/01/22 15:09 [place] % (Auto) 8.5 % 01/01/22 15:09 Eos % (Auto) 2.7 % 01/01/22 15:09 Baso % (Auto) 0.6 % 01/01/22 15:09 Neut # (Auto) 3.03 10^3/uL (1.8-7.7) 01/01/22 15:09 Lymph # (Auto) 1.5 10^3/uL (0.8-4.8) 01/01/22 15:09 [place] # (Auto) 0.4 10^3/uL (0.2-0.9) 01/01/22 15:09 Eos # (Auto) 0.1 10^3/uL (0.0-0.8) 01/01/22 15:09 Baso # (Auto) 0.0 10^3/uL (0.0-0.1) 01/01/22 15:09 Nucleated RBC % (auto) 0 % 01/01/22 15:09 Nucleated RBCs # 0.0 /100WBC 01/01/22 15:09 Sodium 136 mmol/L (136-145) 01/01/22 15:09 Potassium 3.4 mmol/L (3.5-5.1) L 01/01/22 15:09 Chloride 103 mmol/L (98-107) 01/01/22 15:09 Carbon Dioxide 17 mmol/L (22-29) L 01/01/22 15:09 Anion Gap 19.4 (5-19) H 01/01/22 15:09 BUN 11 mg/dL (6-20) 01/01/22 15:09 Creatinine 1.0 mg/dL (0.7-1.2) 01/01/22 15:09 GFR Calculation 91.8 mL/min (90-130) 01/01/22 15:09 Glucose 87 mg/dL (65-115) 01/01/22 15:09 Calculated Osmolality 281 mOsm/kg (285-295) L 01/01/22 15:09 Calcium 9.0 mg/dL (8.5-10.5) 01/01/22 15:09 Total Bilirubin 0.8 mg/dL (0.15-1.2) 01/01/22 15:09 AST 22 U/L (0-40) 01/01/22 15:09 ALT 33 U/L (0-41) 01/01/22 15:09 Alkaline Phosphatase 71 IU/L (40-130) 01/01/22 15:09 Total Protein 6.9 g/dL (6.6-8.7) 01/01/22 15:09 Albumin 4.7 g/dL (3.5-5.2) 01/01/22 15:09 Globulin 2.2 g/dL (1.3-4.6) 01/01/22 15:09 Discharge Plan Discharge Patient Disposition: Home Clinical Impression: Temporal lobe epilepsy Condition: Stable Prescriptions: Changed Keppra XR 750 mg tablet extended release 24 hr 3,750 mg PO BEDTIME Qty: 120 11RF Rx Instructions: Take 4 tablets daily No Action lorazepam [Lorazepam Intensol] 2 mg/mL concentrate 2 mg PO DAILY PRN (Reason: anxiety) Qty: 30 0RF Excedrin Extra Strength 250-250-65 mg Tablet 1 tab PO Q6H PRN (Reason: Pain) 0RF ibuprofen 200 mg Tablet 800 mg PO Q6H PRN (Reason: Pain) 0RF topiramate [Topamax] 100 mg tablet 200 mg PO BEDTIME 0RF Discharge Orders: Discharge ED (Routine); Ordered 01/01/22 Ordered By: Mauri Godoy Referrals: No Issa RN [Primary Care Provider] - Discharge Diet: Usual diet Discharge Activity: Resume usual activity Patient Instructions: Opioid Safety Activity Restrictions/Additional Instructions: Call Dr. 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
[2022-01-01 15:39] VITALS: BP 125/73; PULSE 86; O2SAT 97
[2022-01-01 15:51] LABS: Alanine Aminotransferase 33 U/L (0-41); Albumin Level 4.7 g/dL (3.5-5.2); Alkaline Phosphatase 71 IU/L (40-130); Anion Gap 19.4 (5-19); Aspartate Amino Transferase 22 U/L (0-40); Blood Urea Nitrogen 11 mg/dL (6-20); Carbon Dioxide 17 mmol/L (22-29); Chloride 103 mmol/L (98-107); Globulin 2.2 g/dL (1.3-4.6); Glomerular Filtration Rate 91.8 mL/min (90-130); Glucose 87 mg/dL (65-115); Osmolality Calculated 281 mOsm/kg (285-295); Potassium 3.4 mmol/L (3.5-5.1); Sodium 136 mmol/L (136-145); Total Bilirubin 0.8 mg/dL (0.15-1.2); Total Protein 6.9 g/dL (6.6-8.7)
[2022-01-01 16:33] VITALS: BP 105/72; PULSE 84; RESP 18; O2SAT 97
== END 2022-01-01 16:39 | disposition home or self-care (01) ==
PROVIDERS: Emergency Provider Family Medicine
DX: G40.802 Other epilepsy, not intractable, without status epilepticus (principal); F17.210 Nicotine dependence, cigarettes, uncomplicated
CPT/HCPCS: 80053; 80177; 80201; 85025; 99283

== ENCOUNTER 2022-02-25 13:13 | Emergency (ER) | payer OTHER, SELFPAY ==
[2022-02-25] VITALS (18 sets, daily range): BP systolic 91–131; BP diastolic 53–86; PULSE 50–102; RESP 8–20; TEMP 37.1; O2SAT 97–100
--- NOTE | 2022-02-25 13:18 | ECG_ITS ---
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 Measurements Intervals [place] Rate: 111 P: 58 [place]: 190 QRS: 38 QRSD: 114 T: 51 QT: 347 QTc: 472 Interpretive Statements SINUS TACHYCARDIA POSSIBLE LEFT ATRIAL ENLARGEMENT [-0.1mV P-WAVE IN V1/V2] INCOMPLETE RIGHT BUNDLE BRANCH BLOCK [90+ ms QRS DURATION, TERMINAL R IN V1/V2, 40+ ms S IN I/aVL/V4/V5/V6] Compared to ECG 10/23/2021 13:22:06 Incomplete right bundle-branch block now present ST (T wave) deviation now present Sinus rhythm no longer present Electronically Signed On 02-25-2022 17:36:04 CDT by Rafael Courtney M.D. [email or web address]
--- NOTE | 2022-02-25 13:19 | W.ED.GENADLT ---
HPI - General Adult General: Chief complaint: Seizure Stated complaint: SEIZURES Time Seen by Provider: 02/25/22 13:18 History of Present Illness: 26-year-old male with history of seizure presenting to the emergency room for breakthrough episode of seizure. Patient was at work when he stood up and had an episode of seizure around 10 to 11:50 AM. EMS was called. Patient was on the ground seizing for 10 minutes. EMS gave 2.5 of Versed with improvement in symptoms. Patient was postictal on arrival. History limited. Patient is on Keppra 750 3 times daily, Lamictal 100 mg BID, and Topamax 250 mg. Patient is in the process of adjusting his medicine. Per discussion with Dr. Dumont, our neurologist, patient went down from keppra 740mg QID to TID recently while attempting to increase his Lamictal?from 100mg BID to 150mg BID due to increased side effect of depression while on the keppra medicine. Onset: 11:50am Duration: intermittent Location: work Severity: moderate Review of Systems General: Reports: ROS unobtainable due to medical condition Neuro: Reports: other (+seizures, ams, confusion) [facility] ED PFSH: Medical History Epilepsy Social History Smoking and tobacco status: current every day smoker cigarettes Alcohol intake: never History of recent travel: No Physical Exam Const: OTHER: +somnolent HENMT: COMMON NORMALS: atraumatic HEAD & SCALP: atraumatic MOUTH: moist mucous membranes not abnormal Eye: COMMON NORMALS: conjunctivae normal and no scleral icterus CONJUNCTIVA: Yes conjunctivae normal OTHER: eyes open Neck/C-Spine: COMMON NORMALS: full ROM and supple Resp: COMMON NORMALS: normal respiratory effort and clear to auscultation bilaterally AUSCULTATION: clear to auscultation bilaterally Cardio: RATE: tachycardic GI: COMMON NORMALS: Soft to palpation and non-tender PALPATION: Yes Soft to palpation OTHER: No focal TTP. NO guarding rebound, guarding, rigidity. No CVA tenderness to percussion. Neg McBurney's point tenderness, no suprabupic tenderness to palpation. Extremity: NARRATIVE EXTREMITY EXAM: +moving all extremiites Neuro: OTHER: +AAOX0, somnolent, arousable to sternal rub, moving all extremity, occasionally answering questions Psych: OTHER: +unable to assess due to AMS Procedures Intubation Time out performed: Yes sedative: Fentanyl Mg Given: 150 paralytic: Vecuronium Mg Given: 10 Laryngoscope: Chaparro ET Tube Size: 8 Tube Secured Depth (cm): 21 Tube Secured Location: lips Course Vital Signs: Vital signs: Vital Signs Temperature 98.7 F 02/25/22 13:35 Pulse Rate 72 02/25/22 16:00 Respiratory Rate 14 02/25/22 16:00 Blood Pressure 115/63 02/25/22 16:00 Pulse Oximetry 100 02/25/22 15:23 Oxygen Delivery Me thod 02/25/22 13:35 Fraction of Inspir ed Oxygen 40 02/25/22 15:20 MDM - General Adult Medical Decision Making 26-year-old male multiple agents for seizures including Keppra, lamotrigine, Topamax presenting to the emergency room with breakthrough episode of seizure. On arrival, patient was postictal. While patient was observed in the emergency room, he received 1g of Keppra had an episode of slow seizure. Patient received 5 mg of Versed with of seizure. However patient continues have 2 more episodes seizure without any returning back to baseline concerning for possible status. Patient was emergently intubated. Patient is on propofol/fentanyl/Versed drip. Discussed case with [facility] neurologist Dr. Zamora who recommendeda loading dose of 60mg/kg of keppra. Patient received 4g of keppra in the ED. Case was discussed with Dr. Mai who agreed with the transfer to [facility] for status epilepticus. Disposition: Transfer to outside hospital Lab Data : 02/25/22 13:30 02/25/22 13:30 Radiology Impressions Chest X-Ray 02/25/22 14:42 IMPRESSION: 1. Endotracheal tube in proper position. 2. Enteric tube side port and tip terminate within the esophagus. Would recommend advancement by at least 13 cm for proper placement in the stomach. Findings were discussed with MARINO GOINS at 02/25/2022 3:[address] 02/25/22 15:35 IMPRESSION: 1. No acute intracranial finding. 2. Minimal paranasal sinus disease as detailed above. Laboratory Results WBC 6.0 10^3/uL (4.0-10.0) 02/25/22 13: RBC 5.05 10^6/uL (4.1-5.3) 02/25/22 13: Hgb 15.6 g/dL (11.7-16.6) 02/25/22 13: Hct 45.6 % (42.0-52.0) 02/25/22: MCV 90.3 fl (80-94) 02/25/22 13: MCH 30.9 pg (28.0-34.0) 02/25/22: MCHC 34.2 g/dL (30.0-36.0) 02/25/22: RDW 11.8 % (12.1-15.1) L 02/25/22: Plt Count 187 10^3/cmm (130-400) 02/25/22: MPV 10.1 fL (7.4-10.4) 02/25/22 13: Neut % (Auto) 55.3 % 02/25/22 13:30 Lymph % (Auto) 32.4 % 02/25/22: Posey % (Auto) 8.7 % 02/25/22: Eos % (Auto) 2.7 % 02/25/22 13: Baso % (Auto) 0.7 % 02/25/22: Neut # (Auto) 3.29 10^3/uL (1.8-7.7) 02/25/22: Lymph # (Auto) 1.9 10^3/uL (0.8-4.8) 02/25/22: Posey # (Auto) 0.5 10^3/uL (0.2-0.9) 02/25/22: Eos # (Auto) 0.2 10^3/uL (0.0-0.8) 02/25/22: Baso # (Auto) 0.0 10^3/uL (0.0-0.1) 02/25/22: Nucleated RBC % (auto) 0 % 02/25/22: Nucleated RBCs # 0.0 /100WBC 02/25/22 13:30 Specimen Type Arterial 02/25/22 15:06 Sample Site Radial, right 02/25/22 15:06 ABG pH 7.30 (7.35-7.45) L 02/25/22 15:06 ABG pCO2 36.8 mmHg (35-45) 02/25/22 15:06 ABG pO2 520.0 mmHg (80.0-100.0) H 02/25/22 15:06 ABG HCO3 18.1 mmol/L (22-26) L 02/25/22 15:06 ABG Base Excess -7.6 mmol/L (-2.0-2.0) L 02/25/22 15:06 Chivo Test Pos 02/25/22 15:06 Hematocrit 42.6 % (42-52) 02/25/22 15:06 O2 Delivery Device Vent 02/25/22 15:06 FiO2 100.0 % 02/25/22 15:06 Tidal Volume 0.50 02/25/22 15:06 PEEP 5.0 cmH20 02/25/22 15:06 Personal Lines Account Manager ID Ed 02/25/22 15:06 Sodium 142 mmol/L (136-145) 02/25/22 13:30 Potassium 3.5 mmol/L (3.5-5.1) 02/25/22 13:30 Chloride 104 mmol/L (98-107) 02/25/22 13:30 Carbon Dioxide 15 mmol/L (22-29) L 02/25/22 13:30 Anion Gap 26.5 (5-19) H 02/25/22 13:30 BUN 8 mg/dL (6-20) 02/25/22 13:30 Creatinine 1.2 mg/dL (0.7-1.2) 02/25/22 13:30 GFR Calculation 74.4 mL/min (90-130) L 02/25/22 13:30 Glucose 101 mg/dL (65-115) 02/25/22 13:30 POC Glucose 94 mg/dL (70-110) 02/25/22 14:11 Calculated Osmolality 292 mOsm/kg (285-295) 02/25/22 13:30 Calcium 9.5 mg/dL (8.5-10.5) 02/25/22 13:30 Total Bilirubin 0.7 mg/dL (0.15-1.2) 02/25/22 13:30 AST 15 U/L (0-40) 02/25/22 13:30 ALT 13 U/L (0-41) 02/25/22 13:30 Alkaline Phosphatase 71 U/L (40-130) 02/25/22 13:30 Total Protein 7.1 g/dL (6.6-8.7) 02/25/22 13:30 Albumin 5.3 g/dL (3.5-5.2) H 02/25/22 13:30 Globulin 1.8 g/dL (1.3-4.6) 02/25/22 13:30 Lipase 21 U/L (13-60) 02/25/22 13:30 Imaging Data Other Imaging: Radiologist's impression: [facility] [employer] [address] [place] [address] Scan Report Signed Patient: Rakesh Murcia Unit #: [id number] : 1995 Age/Sex: 26 / M ADM Date: 02/25/22 Loc: ER Room/Bed: Attending Dr: Ordering Provider/Ordering MD: Marino Goins MD Date of Service: 02/25/22 Procedure(s): CT head wo con* [id number] Accession Number(s): [id number] Report Number: [id number] WS: [id number] Exam: CT head wo con* [id number] Date/Time of Exam: 02/25/2022 3:37 PM Reason For Exam: SEIZURES Comparison 12/06/2020. No sign of acute intracranial bleed or space-occupying mass. No extra-axial fluid collections. The ventricles and basal cisterns are unremarkable in appearance. The skull is intact. Small fluid level in the posterior right maxillary sinus. Mucosal thickening of the ethmoid sinuses. The mastoids are clear. DLP: 1123.[address] scans at [facility] [employer] use at least one of these dose optimization techniques: automated exposure control; mA and/or kV adjustment per patient size (includes targeted exams where dose is matched to clinical indication); or iterative reconstruction. CT/CT head wo con* [id number] IMPRESSION: 1. No acute intracranial finding. 2. Minimal paranasal sinus disease as detailed above. ? Dictated By: Gamaliel Johnson DO Signed By: Gamaliel Johnson DO Signed Date/Time: 02/25/22 1551 DD/ [address] [address] XRay Report Signed Patient: Rakesh Murcia Unit #: [id number] : 1995 Age/Sex: 26 / M ADM Date: 02/25/22 Loc: ER Room/Bed: Attending Dr: Ordering Provider/Ordering MD: Marino Goins MD Date of Service: 02/25/22 Procedure(s): XR chest 1V portable [id number] Accession Number(s): [id number] Report Number: [id number] PROCEDURE INFORMATION: Exam: XR Chest Exam date and time: 02/25/2022 3:04 PM Age: 26 years old Clinical indication: Device placement; Ett placement (vent status); Additional info: Et tube placement TECHNIQUE: Imaging protocol: Radiologic exam of the chest. Views: 1 view. COMPARISON: No relevant prior studies available. FINDINGS: Tubes, catheters and devices: Endotracheal tube in proper positioning 4 cm above the cory. Enteric tube side port and tip terminate within the esophagus. Lungs: Unremarkable. No consolidation. Pleural spaces: Unremarkable. No pleural effusion. No pneumothorax. Heart/Mediastinum: Unremarkable. No cardiomegaly. Bones/joints: Unremarkable. XR/XR chest 1V portable [id number] IMPRESSION: 1. Endotracheal tube in proper position. 2. Enteric tube side port and tip terminate within the esophagus. Would recommend advancement by at least 13 cm for proper placement in the stomach. ? Findings were discussed with MARINO GOINS at 02/25/2022 3:31 PM CDT. ? Dictated By: Mk Cedillo DO Signed By: Mk Cedillo DO Signed Date/Time: 02/25/22 1533 DD/ 1504 Critical Care Time Critical Care Time: Critical Care Time: Yes Total Critical Care Time: 35 Attestation: The high probability of a clinically significant, sudden or life threatening deterioration of the patient's Neurological system(s) required my full and direct attention, intervention and personal management. The critical care time is as shown. This time is in addition to time spent performing any reported procedures but includes the following: [x] Data and vital sign review and interpretation [x] Patient assessment, examination and intervention [x] Documentation [x] Medication orders and management Discharge Plan Discharge Patient Disposition: Transfer to ED Clinical Impression: Seizure, Status epilepticus Condition: Stable Prescriptions: No Action lorazepam [Lorazepam Intensol] 2 mg/mL concentrate 2 mg PO DAILY PRN (Reason: anxiety) Qty: 30 0RF topiramate [Topamax] 100 mg tablet 200 mg PO BEDTIME Qty: 60 5RF Keppra XR 750 mg tablet extended release 24 hr 2,250 mg PO BEDTIME Qty: 90 3RF Excedrin Extra Strength 250-250-65 mg Tablet 1 tab PO Q6H PRN (Reason: Pain) Lamictal 100 mg tablet See Rx Instructions .ROUTE .COMPLEX Rx Instructions: 100mg po qam and 200mg po bedtime ibuprofen 200 mg Tablet 800 mg PO Q6H PRN (Reason: Pain) Referrals: No Issa FNP [Primary Care Provider] - Discharge Diet: Advance as tolerated Discharge Activity: Increase activity as tolerated Patient Instructions: Epilepsy (ED) Activity Restrictions/Additional Instructions: Please come back to the emergency room for any more breakthrough episodes of seizure. Come back if any weakness in her arms, drooling, difficulty speaking, any neurological symptoms. Please do not swim bathe or drive a vehicle unattended. 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
[2022-02-25 13:38] LABS: Basophils % 0.7 %; Eosinophils # 0.2 10^3/uL (0.0-0.8); Eosinophils % 2.7 %; Hematocrit 45.6 % (42.0-52.0); Hemoglobin 15.6 g/dL (11.7-16.6); Lymphocytes # 1.9 10^3/uL (0.8-4.8); Lymphocytes % 32.4 %; Mean Corpuscular HGB Conc 34.2 g/dL (30.0-36.0); Mean Corpuscular Hemoglobin 30.9 pg (28.0-34.0); Mean Corpuscular Volume 90.3 fl (80-94); Mean Platelet Volume 10.1 fL (7.4-10.4); Monocytes # 0.5 10^3/uL (0.2-0.9); Monocytes % 8.7 %; Neutrophils # 3.29 10^3/uL (1.8-7.7); Neutrophils % 55.3 %; Nucleated Red Blood Cells % 0 %; Platelet Count 187 10^3/cmm (130-400); Red Blood Count 5.05 10^6/uL (4.1-5.3); Red Cell Distribution Width 11.8 % (12.1-15.1)
[2022-02-25] MEDS: sodium chloride 0.9% 1,000 ML 999 ML IV (13:47)
[2022-02-25 14:09] LABS: Alanine Aminotransferase 13 U/L (0-41); Albumin Level 5.3 g/dL (3.5-5.2); Alkaline Phosphatase 71 U/L (40-130); Anion Gap 26.5 (5-19); Aspartate Amino Transferase 15 U/L (0-40); Blood Urea Nitrogen 8 mg/dL (6-20); Calcium 9.5 mg/dL (8.5-10.5); Carbon Dioxide 15 mmol/L (22-29); Chloride 104 mmol/L (98-107); Globulin 1.8 g/dL (1.3-4.6); Glomerular Filtration Rate 74.4 mL/min (90-130); Glucose 101 mg/dL (65-115); Lipase 21 U/L (13-60); Osmolality Calculated 292 mOsm/kg (285-295); Potassium 3.5 mmol/L (3.5-5.1); Sodium 142 mmol/L (136-145); Total Bilirubin 0.7 mg/dL (0.15-1.2); Total Protein 7.1 g/dL (6.6-8.7)
[2022-02-25 14:13] LABS: Glucose Point of Care 94 mg/dL (70-110)
[2022-02-25] MEDS: vecuronium 10 mg SDV IVP (14:38)
[2022-02-25] MEDS: propofol 10 mg/mL SDV 20 mL 150 MG IVP ×2 (14:38→14:42)
--- NOTE | 2022-02-25 14:42 | XRR_ITS ---
PROCEDURE INFORMATION: Exam: XR Chest Exam date and time: 02/25/2022 3:04 PM Age: 26 years old Clinical indication: Device placement; Ett placement (vent status); Additional info: Et tube placement TECHNIQUE: Imaging protocol: Radiologic exam of the chest. Views: 1 view. COMPARISON: No relevant prior studies available. FINDINGS: Tubes, catheters and devices: Endotracheal tube in proper positioning 4 cm above the cory. Enteric tube side port and tip terminate within the esophagus. Lungs: Unremarkable. No consolidation. Pleural spaces: Unremarkable. No pleural effusion. No pneumothorax. Heart/Mediastinum: Unremarkable. No cardiomegaly. Bones/joints: Unremarkable. XR/XR chest 1V portable [id number] IMPRESSION: 1. Endotracheal tube in proper position. 2. Enteric tube side port and tip terminate within the esophagus. Would recommend advancement by at least 13 cm for proper placement in the stomach. Findings were discussed with SEBASTIEN BERNARDO at 02/25/2022 3:31 PM CDT.
[2022-02-25 15:15] LABS: ABG PCO2 36.8 mmHg (35-45); Arterial Blood Gas Hematocrit 42.6 % (42-52); Base Excess ABG -7.6 mmol/L (-2.0-2.0); Blood Gas Allen Test Pos; Blood Gas Sample Type Arterial; HCO3 ABG 18.1 mmol/L (22-26)
[2022-02-25 15:17] LABS: Blood Gas Operator Identificat ED; Blood Gas Sample Site Radial, right; Oxygen Device VENT
[2022-02-25] MEDS: propofol 1,000 MG/100 ML INJ 5.3 MG IV (15:19)
--- NOTE | 2022-02-25 15:35 | CT_ITS ---
WS: [id number] Exam: CT head wo con* [id number] Date/Time of Exam: 02/25/2022 3:37 PM Reason For Exam: SEIZURES Comparison 12/06/2020. No sign of acute intracranial bleed or space-occupying mass. No extra-axial fluid collections. The ve ntricles and basal cisterns are unremarkable in appearance. The skull is intact. Small fluid level in the posterior right maxillary sinus. Mucosal thickening of the ethmoid sinuses. The mastoids are jay ar. DLP: 1123.[address] [facility] use at least one of these dose optimization techniques: automated e xposure control; mA and/or kV adjustment per patient size (includes targeted exams where dose is matc hed to clinical indication); or iterative reconstruction. CT/CT head wo con* [id number] IMPRESSION: 1. No acute intracranial finding. 2. Minimal paranasal sinus disease as detailed above.
--- NOTE | 2022-02-25 15:56 | PC.NURSE ---
1550 pt waking up and pulling at lines pt propofol increased to 50 mg/kg/hr versed increased to 4 mg/hr fent increased to 100n mcg/hr
[2022-02-25] MEDS: midazolam 1 mg/mL INJ 2 mL 5 MG IVP (16:03)
--- NOTE | 2022-02-25 16:16 | PC.NURSE ---
approx 1410 nurse entered pt room and noted pt slightly shaking although still responsive. pt had done this before seizure previously, Dr Goins notified on return to room pt now in full seizure. pt transferred to room 10, intubated via RSI. pt et tube 28 at the teeth OG placed, 16 fr guaman placed. pt started on multiple sedation drugs stabilized taken to ct where he began lightly shaking again. versed increased. dr goins notified pt VSS thorough transfer process. pt returned to room 10 in Ed for furtherance of care.
[2022-02-25 16:55] LABS: SARS Covid-2 Antigen Negative (Negative)
--- NOTE | 2022-02-25 17:15 | PC.NURSE ---
pt nell 5 pt in room. pt hob elevated. pt VSS
[2022-02-28 10:18] LABS: Lamotrigine (Lamictal) Level 5.1 mcg/mL (4.0-18.0)
== END 2022-02-25 19:15 ==
PROVIDERS: Emergency Provider Emergency Medicine; PCP Nurse Practitioner Family
DX: G40.901 Epilepsy, unspecified, not intractable, with status epilepticus (principal); F17.210 Nicotine dependence, cigarettes, uncomplicated; Z20.822 Contact with and (suspected) exposure to COVID-19
CPT/HCPCS: 31500; 36416; 36600; 51702; 70450; 71045; 80053; 80175; 82803; 82962; 83690; 85025; 87426; 93005; 94002; 94799; 96365; 96366; 96367; 99291; 99292; J1165; J1953; J2250; J2704; J3010; J3490; J7030; J7050

== ENCOUNTER 2022-04-26 12:56 | Emergency (ER) | payer OTHER, SELFPAY ==
[2022-04-26 13:09] VITALS: BP 123/76; PULSE 85; O2SAT 100
[2022-04-26 13:11] VITALS: BP 120/83; PULSE 90; TEMP 36.8; O2SAT 99; BMI 28.3
--- NOTE | 2022-04-26 13:19 | W.ED.SEIZURE ---
HPI - Seizure General: Chief Complaint: Seizure Stated Complaint: Seizure Time Seen by Provider: 04/26/22 12:57 History of Present Illness: Seizure History: Yes PFSH ED PFSH: Medical History (Updated 03/26/22 @ 13:08 by TEMO Valladares) Epilepsy Psychiatric care Psychogenic nonepileptic seizure Social History Smoking and tobacco status: never smoked Alcohol intake: never History of recent travel: No Course Vital Signs: Vital signs: Vital Signs Temperature 98.3 F 04/26/22 13:11 Pulse Rate 90 04/26/22 13:11 Blood Pressure 120/83 04/26/22 13:11 Pulse Oximetry 99 04/26/22 13:11 Oxygen Delivery Me thod 04/26/22 13:11 Discharge Plan Discharge Condition: Stable Prescriptions: No Action lorazepam [Lorazepam Intensol] 2 mg/mL concentrate 2 mg PO DAILY PRN (Reason: anxiety) Qty: 30 0RF topiramate [Topamax] 100 mg tablet 200 mg PO BEDTIME Qty: 60 5RF mirtazapine 15 mg tablet 15 mg PO DAILY Qty: 90 3RF clonazepam 0.5 mg tablet 0.5 mg PO DAILY Qty: 90 3RF lamotrigine [Lamictal] 100 mg tablet 100 mg PO BID 90 Days Qty: 180 0RF Excedrin Extra Strength 250-250-65 mg Tablet 1 tab PO Q6H PRN (Reason: Pain) ibuprofen 200 mg Tablet 800 mg PO Q6H PRN (Reason: Pain) Referrals: No Issa FNP [Primary Care Provider] - Coding Level of Care Code 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
--- NOTE | 2022-04-26 13:22 | W.ED.GENADLT ---
HPI - General Adult General: Chief complaint: Seizure Stated complaint: Seizure Time Seen by Provider: 04/26/22 12:57 History of Present Illness: HPI: [27]yo patient w/ hx of epilespy on three AED medication presenting to the ED with breakthrough episode of the seizure with unknown duration which occurred 2 hrs ago. The incident was witnessed entirely by family members when patient was in the store. Patient was observed to have seizures for3 minutes on the ground before becoming post-icteral. Unclear if there were any trauma or injuries. HDS without any signs of focal neurological deficits. On arrival, the patient is AAOx3, GCS of 15 and answering all questions. The patient denies any associated chest pain, shortness of breath, palpitations, or any focal pain in the arms and legs. Patient is followed by Dr. Dumont from Neurology. However, patient has no headache or complaints of pain in the neck or back. Patient reports right-sided lateral chest pain/ RUQ abd pain for the last 3 weeks. Denies nausea/vomiting, fever/chill, chest pain, shortness of breath, abdominal pain, dysuria/hematuria/polyuria, diarrhea/melena/hematochezia. Onset: 2hrs ago Duration: x1 episode lasting for 3 minutes Location: home Severity: moderate Associated symptoms: Deny chest pain, dyspnea, nausea, rash, palpitations or vomiting Review of Systems Const: Denies: fever(s) or chills Eyes: Denies: change in vision ENMT: Denies: mouth pain Card: Denies: chest pain or palpitations Resp: Denies: dyspnea or non-productive cough GI: Denies: abdominal pain, nausea, vomiting or diarrhea : Denies: dysuria Musc: Denies: extremity pain Skin/Breast: Denies: rash or new lesions Neuro: Reports: other (+seizure); Denies: weakness in extremities Psych: Reports: other (Normal mood) Hi/Lymph: Denies: easy bruising PFSH ED PFSH: Medical History Epilepsy Psychiatric care Psychogenic nonepileptic seizure Social History Smoking and tobacco status: never smoked Alcohol intake: never History of recent travel: No Physical Exam Const: COMMON NORMALS: alert HENMT: COMMON NORMALS: atraumatic HEAD & SCALP: atraumatic MOUTH: moist mucous membranes not abnormal Eye: COMMON NORMALS: EOMs intact bilaterally and conjunctivae normal CONJUNCTIVA: Yes conjunctivae normal Neck/C-Spine: COMMON NORMALS: full ROM and supple Resp: COMMON NORMALS: normal respiratory effort and clear to auscultation bilaterally AUSCULTATION: clear to auscultation bilaterally Cardio: COMMON NORMALS: regular rate RATE: regular rate GI: COMMON NORMALS: Soft to palpation and non-tender PALPATION: Yes Soft to palpation OTHER: No focal TTP. NO guarding rebound, guarding, rigidity. No CVA tenderness to percussion. Neg Marquez/Neg McBurney's point tenderness, no suprabupic tenderness to palpation. Extremity: COMMON NORMALS: full ROM Neuro: SENSORIUM/ORIENTATION: Yes alert MOTOR EXAM: No Abnormal motor strength present and Other motor observations present (no focal motor deficits) Psych: COMMON NORMALS: speech normal SPEECH: Yes normal speech MOOD & AFFECT: Yes euthymic mood Course Vital Signs: Vital signs: Vital Signs Temperature 98.3 F 04/26/22 13:11 Pulse Rate 62 04/26/22 14:30 Blood Pressure 113/80 04/26/22 14:30 Pulse Oximetry 100 04/26/22 14:30 Oxygen Delivery Me thod 04/26/22 13:11 MDM - General Adult Medical Decision Making [27]yo patient w/ known hx of seizure on three medications BIBA after an episode of seizure. Back to baseline on arrival, AAOX3 with non-focal neuro exam. HDS. Exam revealed no focal trauma/deformity/bruises.The episode of seizure was witnessed and without any trauma/injury to the head. No immunosuppression hx and without preceding fever. No history of alcohol abuse or suspicion for toxin ingestion. Hx of prior seizure likely breakthrough seizure in the setting of medication change/non-compliance. H No lips/tongue lacerations. No visible bowel/bladder incontinence Airway protected. No drooling. Sats > 95%. Unlikely to be stroke, neurogenic syncope, acute delirium, intracranial tumor/mass, intracranial bleed, SAH/subdural hematoma/epidural hematoma, meningitis, or intracranial abscess, or from alcohol withdrawal. Workup: CBC, BMP, Magnesium, EKG, CT head for fall, XR chest R sided chest pain, lamicteral level ED Interventions: phenytoin EKG: No e/o STEMI. No evidence of Brugada?s sign, delta wave, epsilon wave, significantly prolonged QTc, or malignant arrhythmia Lab findings: Electrolytes including K and Mg wnl. [3:20pm] On reassessment, patient back to baseline. In the ED, the patient received 1g of keppra in the ED. No other witnessed episodes of seizure while the patient was observed in the ED. Repeat neuro exam is non-focal. Patient takes Lamicteral 300 dialy, clonazepam 0.5mg daily, and topamax 100mg bedtime for his seizures and tells me the seizure is likely to recent medication changes. Patient tolerated PO in the ED and was able to ambulate without difficulties. Unlikely to be alternative causes of seizures since the patient has no hx of immunosuppression, no recent fevers, no recent abx/SUGAR TRUCKER shunt, no recent toxic exposure, no unilateral or focal weakness, or trauma. CT head negative for any acute fiindings. Patient has an appointment with Dr. Dumont next week. XR chest is clear for any signs of R sided trauma. Rx topamax 100mg BID for seizures from topamax 100mg daily Disposition: Discharge. Patient is given instruction for follow-up with PCP and Neurology in the next 24-48 hours. Given seizure precautions including no driving, swimming, or bathing until the patient is fully evaluated by specialists. Lab Data : 04/26/22 13:48 04/26/22 13:48 Radiology Impressions Chest X-Ray 04/26/22 14:04 Impression: Negative chest. Head CT 04/26/22 14:04 IMPRESSION: Negative head CT. Laboratory Results WBC 6.1 10^3/uL (4.0-10.0) 04/26/22 13:48 RBC 5.25 10^6/uL (4.1-5.3) 04/26/22 13:48 Hgb 16.2 g/dL (11.7-16.6) 04/26/22 13:48 Hct 47.4 % (42.0-52.0) 04/26/22 13:48 MCV 90.3 fl (80-94) 04/26/22 13:48 MCH 30.9 pg (28.0-34.0) 04/26/22 13:48 MCHC 34.2 g/dL (30.0-36.0) 04/26/22 13:48 RDW 12.1 % (12.1-15.1) 04/26/22 13:48 Plt Count 170 10^3/cmm (130-400) 04/26/22 13:48 MPV 10.7 fL (7.4-10.4) H 04/26/22 13:48 Neut % (Auto) 60.5 % 04/26/22 13:48 Lymph % (Auto) 26.7 % 04/26/22 13:48 Stan[place]aus % (Auto) 9.0 % 04/26/22 13:48 Eos % (Auto) 2.8 % 04/26/22 13:48 Baso % (Auto) 0.5 % 04/26/22 13:48 Neut # (Auto) 3.70 10^3/uL (1.8-7.7) 04/26/22 13:48 Lymph # (Auto) 1.6 10^3/uL (0.8-4.8) 04/26/22 13:48 [place]aus # (Auto) 0.6 10^3/uL (0.2-0.9) 04/26/22 13:48 Eos # (Auto) 0.2 10^3/uL (0.0-0.8) 04/26/22 13:48 Baso # (Auto) 0.0 10^3/uL (0.0-0.1) 04/26/22 13:48 Nucleated RBC % (auto) 0 % 04/26/22 13:48 Nucleated RBCs # 0.0 /100WBC 04/26/22 13:48 Sodium 141 mmol/L (136-145) 04/26/22 13:48 Potassium 3.4 mmol/L (3.5-5.1) L 04/26/22 13:48 Chloride 104 mmol/L (98-107) 04/26/22 13:48 Carbon Dioxide 22 mmol/L (22-29) 04/26/22 13:48 Anion Gap 18.4 (5-19) 04/26/22 13:48 BUN 11 mg/dL (6-20) 04/26/22 13:48 Creatinine 1.2 mg/dL (0.7-1.2) 04/26/22 13:48 GFR Calculation 73.8 mL/min (90-130) L 04/26/22 13:48 Glucose 92 mg/dL (65-115) 04/26/22 13:48 Calculated Osmolality 291 mOsm/kg (285-295) 04/26/22 13:48 Calcium 9.5 mg/dL (8.5-10.5) 04/26/22 13:48 Magnesium 2.2 mg/dL (1.7-2.3) 04/26/22 13:48 Total Bilirubin 0.4 mg/dL (0.15-1.2) 04/26/22 13:48 AST 19 U/L (0-40) 04/26/22 13:48 ALT 31 U/L (0-41) 04/26/22 13:48 Alkaline Phosphatase 84 U/L (40-130) 04/26/22 13:48 Total Protein 7.2 g/dL (6.6-8.7) 04/26/22 13:48 Albumin 4.8 g/dL (3.5-5.2) 04/26/22 13:48 Globulin 2.4 g/dL (1.3-4.6) 04/26/22 13:48 Lipase 31 U/L (13-60) 04/26/22 13:48 Imaging Data Other Imaging: Radiologist's impression: [address] [address] [address] Scan Report Signed Patient: JoserRakesh Unit #: [id number] : 1995 Age/Sex: 27 / M ADM Date: 04/26/22 Loc: ER Room/Bed: Attending Dr: Ordering Provider/Ordering MD: Marino Goins MD Date of Service: 04/26/22 Procedure(s): CT head wo con* 90451 Accession Number(s): [id number] Report Number: [id number] WS: [id number] CT HEAD NONCONTRAST HISTORY: fall TECHNIQUE: Contiguous axial imaging performed through the brain in 2.5 mm imaging. Bone and soft tissue windows. Sagittal and coronal reformats reviewed.? All [facility] scans at [facility] use at least one of these dose optimization techniques: automated exposure control; mA and/or kV adjustment per patient size (includes targeted exams where dose is matched to clinical indication); or iterative reconstruction. DLP: 1070.95 mGy.cm COMPARISON: None available. No acute intracranial hemorrhage, midline shift or mass effect. No atrophy or prior infarcts or herniation. Ventricles:? Normal size with no hydrocephalus. Paranasal sinuses: As visualized are clear. Mastoid air cells: Well pneumatized. Calvarium and scalp: Skull is intact with no soft tissue edema or swelling. CT/CT head wo con* [id number] IMPRESSION: ? Negative head CT. ? Dictated By: Johanna Dupont DO Signed By: Johanna Dupont DO Signed Date/Time: 04/26/221439 DD/ [address] [address] XRay Report Signed Patient: Rakesh Murcia Unit #: [id number] : 1995 Age/Sex: 27 / M ADM Date: 04/26/22 Loc: ER Room/Bed: Attending Dr: Ordering Provider/Ordering MD: Marino Goins MD Date of Service: 04/26/22 Procedure(s): XR chest 2V* [id number] Accession Number(s): [id number] Report Number: [id number] WS: [email or web address] Chest 2 views, 04/26/2022 Clinical Data: r lateral chest pain, fall Comparison: Portable chest, 02/25/2022 Findings: No nodules, masses or effusions are seen. The heart is normal. The pulmonary vascularity is not increased. No pneumonia or pneumothorax is seen. XR/XR chest 2V* 98333 Impression: Negative chest. ? ? Dictated By: Xiomy Roman MD Signed By: Xiomy Roman MD Signed Date/Time: 04/26/221420 DD/ 19 Discharge Plan Discharge Patient Disposition: Home Clinical Impression: Seizure Condition: Stable Prescriptions: New Topamax 100 mg tablet 100 mg PO BID 15 Days Qty: 30 0RF Discontinued topiramate [Topamax] 100 mg tablet 100 mg PO BEDTIME No Action ibuprofen 200 mg Tablet 800 mg PO Q6H PRN (Reason: Pain) Motion Sickness 25 mg Tablet 25 mg PO .ONCE clonazepam 0.5 mg tablet 0.5 mg PO QAM mirtazapine 15 mg tablet 15 mg PO BEDTIME Lamictal 100 mg tablet See Rx Instructions .ROUTE .COMPLEX Rx Instructions: 100mg po qam and 200mg po bedtime Discharge Orders: Discharge ED (Routine); Ordered 04/26/22 Ordered By: Marino Goins Referrals: No Issa, MAINTENANCE SHOP MANAGER [Primary Care Provider] - Discharge Diet: Advance as tolerated Discharge Activity: Increase activity as tolerated Patient Instructions: Epilepsy (ED) Activity Restrictions/Additional Instructions: Please come back to the emergency room for any more breakthrough episodes of seizure. Come back if any weakness in her arms, drooling, difficulty speaking, any neurological symptoms. Please do not swim bathe or drive a vehicle unattended. Our case briefer will have you follow-up with Neurology in the next few days. You would be expected to have a phone call with our case briefer who will put you on the schedule. You can expect a call from us in the next 2-3 days. If you don't hear from us, call us back in the emergency room at [phone]. Coding Level of Care Code ED Baggage Porter Head for Maurisio Fwtremayne Exam Comprehensive
[2022-04-26 13:30] VITALS: BP 120/77; PULSE 87; O2SAT 96
[2022-04-26] MEDS: sodium chloride 0.9% 1,000 ML 999 ML IV (13:43)
--- NOTE | 2022-04-26 13:47 | PC.NURSE ---
pt refusing keppra, states he was taken off keppra due to increased seizure activity when on medication. physician notified.
[2022-04-26 13:58] LABS: Basophils % 0.5 %; Eosinophils # 0.2 10^3/uL (0.0-0.8); Eosinophils % 2.8 %; Hematocrit 47.4 % (42.0-52.0); Hemoglobin 16.2 g/dL (11.7-16.6); Lymphocytes # 1.6 10^3/uL (0.8-4.8); Lymphocytes % 26.7 %; Mean Corpuscular HGB Conc 34.2 g/dL (30.0-36.0); Mean Corpuscular Hemoglobin 30.9 pg (28.0-34.0); Mean Corpuscular Volume 90.3 fl (80-94); Mean Platelet Volume 10.7 fL (7.4-10.4); Monocytes # 0.6 10^3/uL (0.2-0.9); Neutrophils % 60.5 %; Nucleated Red Blood Cells % 0 %; Platelet Count 170 10^3/cmm (130-400); Red Blood Count 5.25 10^6/uL (4.1-5.3); Red Cell Distribution Width 12.1 % (12.1-15.1); White Blood Count 6.1 10^3/uL (4.0-10.0)
[2022-04-26 14:00] VITALS: BP 110/76; PULSE 58; O2SAT 100
--- NOTE | 2022-04-26 14:04 | CT_ITS ---
WS: [email or web address] CT HEAD NONCONTRAST HISTORY: fall TECHNIQUE: Contiguous axial imaging performed through the brain in 2.5 mm imaging. Bone and soft tiss ue windows. Sagittal and coronal reformats reviewed. All CT scans at [facility] use at least one of these dose optimization techniques: automated exposure control; mA and/or kV adjustment per pa tient size (includes targeted exams where dose is matched to clinical indication); or iterative recon struction. DLP: 1070.95 mGy.cm COMPARISON: None available. No acute intracranial hemorrhage, midline shift or mass effect. No atrophy or prior infarcts or herniation. Ventricles: Normal size with no hydrocephalus. Paranasal sinuses: As visualized are clear. Mastoid air cells: Well pneumatized. Calvarium and scalp: Skull is intact with no soft tissue edema or swelling. CT/CT head wo con* [id number] IMPRESSION: Negative head CT.
--- NOTE | 2022-04-26 14:04 | XR_ITS ---
WS: [email or web address] Chest 2 views, 04/26/2022 Clinical Data: r lateral chest pain, fall Comparison: Portable chest, 02/25/2022 Findings: No nodules, masses or effusions are seen. The heart is normal. The pulmonary vascularity is not increased. No pneumonia or pneumothorax is seen. XR/XR chest 2V* 05205 Impression: Negative chest.
[2022-04-26 14:19] LABS: Alanine Aminotransferase 31 U/L (0-41); Albumin Level 4.8 g/dL (3.5-5.2); Alkaline Phosphatase 84 U/L (40-130); Anion Gap 18.4 (5-19); Aspartate Amino Transferase 19 U/L (0-40); Blood Urea Nitrogen 11 mg/dL (6-20); Calcium 9.5 mg/dL (8.5-10.5); Carbon Dioxide 22 mmol/L (22-29); Chloride 104 mmol/L (98-107); Globulin 2.4 g/dL (1.3-4.6); Glomerular Filtration Rate 73.8 mL/min (90-130); Glucose 92 mg/dL (65-115); Lipase 31 U/L (13-60); Magnesium 2.2 mg/dL (1.7-2.3); Osmolality Calculated 291 mOsm/kg (285-295); Potassium 3.4 mmol/L (3.5-5.1); Sodium 141 mmol/L (136-145); Total Bilirubin 0.4 mg/dL (0.15-1.2); Total Protein 7.2 g/dL (6.6-8.7)
[2022-04-26 14:30] VITALS: BP 113/80; PULSE 62; O2SAT 100
[2022-04-26] MEDS: phenytoin 1,000 MG in sodium chloride 0.9% (100 ml) 100 ML, non-DEHP filter tubing onc ... 240 MG IV (14:31)
--- NOTE | 2022-04-26 14:39 | ECG_ITS ---
[facility] Test Date: 2022-04-26 Pat Name: Rakesh Murcia Department: Room: Gender: Male Clinical Sciences Professor: : 1995 Requested By: Marino Goins Order Number: [id number] Marsha MD: Karin Alston M.D. Measurements Intervals [place] Rate: 51 P: 26 KS: 191 QRS: 40 QRSD: 90 T: 41 QT: 380 QTc: 352 Interpretive Statements SINUS BRADYCARDIA WITH SINUS ARRHYTHMIA Compared to ECG 02/25/2022 13:49:35 Sinus tachycardia no longer present Incomplete right bundle-branch block no longer present Electronically Signed On 04-26-2022 16:35:05 CDT by Karin Alston M.D. [id number]
[2022-04-26] MEDS: ondansetron 2 mg/ML SDV 2 mL 4 MG IVP (15:05)
[2022-04-26 16:41] VITALS: BP 104/58; PULSE 63; RESP 16; O2SAT 99
[2022-04-26 16:46] LABS: Add Urine Microscopic? YES; Bilirubin Urine Neg (Negative); Blood Urine Neg (Negative); Glucose Urine UA Norm (Normal); Ketones Urine Negative (Negative); Leukocyte Esterase Urine Negative (Negative); Nitrate Urine Negative (Negative); Protein Urine Trace (Negative); Specific Gravity, Urine 1.005 (1.005-1.030); Urine Appearance Clear (CLEAR); Urine Color Yellow (Yellow); Urobilinogen Urine Norm (Negative); pH Urine 7 (5-7)
[2022-04-26 16:47] LABS: Add Urine Culture? No; Squamous Epithelial Cell Urine 0-4 /hpf (0-5)
[2022-04-30 19:13] LABS: Lamotrigine (Lamictal) Level 4.9 mcg/mL (4.0-18.0)
== END 2022-04-26 17:17 | disposition home or self-care (01) ==
PROVIDERS: Emergency Provider Emergency Medicine; PCP Nurse Practitioner Family
DX: R56.9 Unspecified convulsions (principal)
CPT/HCPCS: 70450; 71046; 80053; 80175; 81001; 83690; 83735; 85025; 93005; 96365; 96375; 99285; J1165; J2405; J7030

== ENCOUNTER 2022-06-09 13:21 | Emergency (ER) | payer OTHER, SELFPAY ==
[2022-06-09 13:26] VITALS: BP 121/83; PULSE 95; RESP 16; TEMP 37.8; O2SAT 99
[2022-06-09 14:15] LABS: SARS Covid-2 Antigen negative (Negative)
[2022-06-09 14:16] VITALS: BP 118/75; PULSE 109; O2SAT 99
--- NOTE | 2022-06-09 14:40 | ED_ITS ---
HPI - URI/Sore Throat General: Chief Complaint: Upper Respiratory Infection Stated Complaint: fever, n/v/d Time Seen by Provider: 06/09/22 14:19 Source: patient Mode of arrival: ambulatory History of Present Illness: 27-year-old male presents to the emergency room with complaints of nasal congestion and cough for the last 3 days. Temp of 103 said some diarrhea initially. He tried some vdzi-zhb-jouttqa medications with moderate relief the diarrhea is resolved cough is persisting. Abdominal cramping and cramping present with the diarrhea has resolved as well. MD elicited complaint: fever and cough Onset (ago): day(s) (3) Consistency: constant and progressively worsening Severity: moderate Able to tolerate fluids by mouth: Yes Exacerbating factors: swallowing Relieving factors: nothing Associated symptoms: Reports chills, congestion, cough, fever(s), headache(s), nasal congestion, nausea, rhinorrhea and sore throat; Deny abdominal pain, change in voice, chest pain, diarrhea, epistaxis, ear or mastoid pain, myalgias, rash, short of breath, sinus pain, stiffness or vomiting Treatments prior to arrival: none Review of Systems Const: Reports: fever(s), chills, fatigue and malaise ENMT: Reports: throat pain, odynophagia, hoarseness and nasal congestion; Denies: ear or mastoid pain, epistaxis or sinus pain Card: Denies: chest pain, palpitations, irregular heart rhythm or edema Resp: Denies: dyspnea, productive cough or non-productive cough GI: Reports: nausea; Denies: abdominal pain, vomiting or diarrhea : Denies: flank pain, dysuria, urinary frequency or urinary urgency Skin/Breast: Denies: rash or pruritus Neuro: Reports: headache(s) PFS ED PFSH: Medical History Epilepsy Psychiatric care Psychogenic nonepileptic seizure Social History Smoking and tobacco status: never smoked Alcohol intake: never History of recent travel: No Physical Exam Const: GENERAL APPEARANCE: cooperative and comfortable ORIENTATION/CONSCIOUSNESS: Yes awake, Yes oriented to person, Yes oriented to pl jose and Yes oriented to time HENMT: COMMON NORMALS: normocephalic, atraumatic, hearing grossly normal bilaterally, external ears normal, EAC's normal, TM's normal bilaterally, Normal nasal mucous membranes and turbinates present, moist oral mucous membranes and oropharynx normal HEAD & SCALP: normocephalic and atraumatic NOSE: Normal nasal mucous membranes and turbinates present EXTERNAL EAR: Yes external ears normal EXTERNAL AUDITORY CANAL: EAC's normal TYMPANIC MEMBRANE: TM's normal bilaterally Neck/C-Spine: COMMON NORMALS: no lymphadenopathy and supple Resp: COMMON NORMALS: normal respiratory effort, No retractions, No use of accessory muscles and clear to auscultation bilaterally AUSCULTATION: clear to auscultation bilaterally Cardio: COMMON NORMALS: regular rate, regular rhythm and No murmurs present (Cardio) RATE: regular rate RHYTHM: regular rhythm GI: COMMON NORMALS: Soft to palpation and No hepatosplenomegaly present AUSCULTATION: Yes normoactive bowel sounds PALPATION: Yes Soft to palpation, No Tenderness to palpation present (GI), No Guarding due to palpation present (GI) and Yes No hepatosplenomegaly present Extremity: COMMON NORMALS: normal to inspection, capillary refill normal, no clubbing, cyanosis or edema, no calf tenderness and no pedal edema Neuro: SENSORIUM/ORIENTATION: Yes oriented to person, Yes oriented to place and Yes oriented to time Skin: COMMON NORMALS: no rashes or lesions noted GENERAL SKIN EXAM: no rashes or lesions noted Course Vital Signs: Vital signs: Vital Signs Temperature 100.0 F H 06/09/22 13:26 Pulse Rate 109 H 06/09/22 14:16 Respiratory Rate 16 06/09/22 13:26 Blood Pressure 118/75 06/09/22 14:16 Pulse Oximetry 99 06/09/22 14:16 Oxygen Delivery Me thod 06/09/22 14:16 MDM - URI/Sore Throat Medical Decision Making Viral pharyngitis supportive cares. We will do swab for flu and COVID contact patient when results are available discharge home warm salt water gargles [id number] medications as needed. Flu and COVID came back negative Medical Records I reviewed the patient's medical records. Lab Data I reviewed the patient's lab results. Laboratory Results Influenza Type A Ag negative (Negative) 06/09/22 13:30 Influenza Type B Ag negative (Negative) 06/09/22 13:30 SARS-CoV-2 Ag (Rapid) negative (Negative) 06/09/22 13:30 Discharge Plan Discharge Patient Disposition: Home Clinical Impression: Upper respiratory infection Condition: Stable Prescriptions: New qcavkugqubtt-mhkpehyny-kdkenbo 6.25-5-10 mg/5 mL syrup 5 ml PO Q4H PRN (Reason: cough) Qty: 473 0RF No Action ibuprofen 200 mg Tablet 800 mg PO Q6H PRN (Reason: Pain) Motion Sickness 25 mg Tablet 25 mg PO .ONCE clonazepam 0.5 mg tablet 0.5 mg PO QAM mirtazapine 15 mg tablet 15 mg PO BEDTIME Lamictal 100 mg tablet See Rx Instructions .ROUTE .COMPLEX Rx Instructions: 100mg po qam and 200mg po bedtime Discharge Orders: Discharge ED (Routine); Ordered 06/09/22 Ordered By: Mauri Godoy Referrals: No Issa, SYSTEMS INTEGRATOR [Primary Care Provider] - Patient Instructions: Opioid Safety, Pain Management Activity Restrictions/Additional Instructions: You are seen for a viral respiratory infection. Your flu swab is pending. We will contact you with results when they are available. Stand Alone Forms: Work/School Release Coding Level of Care Code ED Food And Nutrition Services Assistant for Maurisio Serrano
[2022-06-09 14:41] LABS: Influenza A by IFA negative (Negative); Influenza B by IFA negative (Negative)
== END 2022-06-09 14:53 | disposition home or self-care (01) ==
PROVIDERS: Emergency Provider Family Medicine; PCP Nurse Practitioner Family
DX: J02.8 Acute pharyngitis due to other specified organisms (principal); R19.7 Diarrhea, unspecified; R11.0 Nausea; Z20.822 Contact with and (suspected) exposure to COVID-19
CPT/HCPCS: 87426; 87804; 99283

== ENCOUNTER → 2023-01-01 15:34 | Outpatient (BNVA) | payer OTHER, SELFPAY | PROVIDERS: PCP Nurse Practitioner Family; Visit Provider Specialist | DX: F44.5 Conversion disorder with seizures or convulsions (principal); G43.711 Chronic migraine without aura, intractable, with status migrainosus | CPT/HCPCS: 99213 ==

== ENCOUNTER 2023-02-06 19:47 | Emergency (ER) | payer OTHER, SELFPAY ==
--- NOTE | 2023-02-06 19:58 | ED_ITS ---
HPI - Chest Pain General: Chief Complaint: Chest Pain Stated Complaint: Chest pain\SOB Time Seen by Provider: 02/06/23 19:50 History of Present Illness: Mr. Murcia is a 27-year-old gentleman with history of PNES presenting to the emergency department for evaluation of chest pain. He notes chest pain which is substernal and right chest over the past 3 days. Notes intermittent sharp stabbing pain and worsening without known specific provoking event. He has had cough and shortness of breath. Moderate intensity symptoms. Persistent course. Also had an episode of syncope prior to coming to the ER. No other specific changes in health, exacerbating, or alleviating factors identified. Onset (ago): day(s) Quality: sharp Associated symptoms: Reports dyspnea, syncope and other Review of Systems General: Reports: 10 or more systems reviewed and unremarkable except in HPI and below Card: Reports: syncope Resp: Reports: dyspnea [facility] ED PFSH: Medical History Epilepsy Psychiatric care Psychogenic nonepileptic seizure Surgical History (Updated 02/18/23 @ 17:28 by Korey Keller NP) History of appendectomy Social History Smoking and tobacco status: never smoked Alcohol intake: never Substance/Drug Use: never Physical Exam Const: COMMON NORMALS: alert GENERAL APPEARANCE: cooperative and well developed HENMT: COMMON NORMALS: normocephalic and atraumatic HEAD & SCALP: normocephalic and atraumatic THROAT: posterior oropharynx normal Eye: COMMON NORMALS: conjunctivae normal CONJUNCTIVA: Yes conjunctivae normal SCLERA: sclerae normal Neck/C-Spine: COMMON NORMALS: supple GENERAL: Yes trachea midline Resp: COMMON NORMALS: normal respiratory effort and clear to auscultation bilaterally EFFORT & INSPECTION: Yes able to speak in complete sentences AUSCULTATION: clear to auscultation bilaterally Cardio: COMMON NORMALS: regular rate and regular rhythm RATE: regular rate RHYTHM: regular rhythm GI: COMMON NORMALS: Soft to palpation PALPATION: Yes Soft to palpation and No Tenderness to palpation present (GI) Extremity: GENERAL: Yes normal exam except as noted and No edema Neuro: COMMON NORMALS: moves all extremities SENSORIUM/ORIENTATION: Yes alert and No Orientation impaired Psych: COMMON NORMALS: mental status grossly normal and Normal thought process present THOUGHT PROCESS: Normal thought process present Course Vital Signs: Vital signs: Vital Signs Temperature 98.4 F 02/06/23 20:00 Pulse Rate 56 L 02/06/23 23:05 Respiratory Rate 24 H 02/06/23 23:05 Blood Pressure 118/64 02/06/23 23:05 Pulse Oximetry 96 02/06/23 23:05 Oxygen Delivery Me thod Room Air 02/06/23 21:32 MDM - Chest Pain Medical Decision Making 27-year-old gentleman presenting with chest pain. Exam as above. Nontoxic. Does have a history of pericarditis however clinical history and physical exam make this less likely today. EKG demonstrates sinus rhythm with normal axis and intervals, no STEMI. Labs with no leukocytosis, normal hemoglobin and platelet count. Metabolic panel without acute electrolyte derangement. Negative range 2-hour delta troponin. Inflammatory markers are negative. D-dimer negative. Chest x-ray with no lobar consolidation or pneumothorax. During ED course patient treated with fluids, analgesia, aspirin. He is improved on reassessment. Low risk by heart score. The results of ED evaluation were discussed with the patient including prescriptions and/or symptomatic cares (if applicable) including appropriate and responsible use, followup plan, and return precautions. The patient verbalized understanding and felt safe for discharge. Medical Records I reviewed the patient's medical records. Lab Data I reviewed the patient's lab results. 02/06/23 20:00 02/06/23 20:00 Radiology Impressions Chest X-Ray 02/06/23 20:08 IMPRESSION: 1. No acute abnormality demonstrated. 2. There is no interval change from the prior examination. Laboratory Results WBC 7.9 10^3/uL (4.0-10.0) 02/06/23 20:00 RBC 5.40 10^6/uL (4.1-5.3) H 02/06/23 20:00 Hgb 16.1 g/dL (11.7-16.6) 02/06/23 20:00 Hct 47.2 % (42.0-52.0) 02/06/23 20:00 MCV 87.4 fl (80-94) 02/06/23 20:00 MCH 29.8 pg (28.0-34.0) 02/06/23 20:00 MCHC 34.1 g/dL (30.0-36.0) 02/06/23 20:00 RDW 11.9 % (12.1-15.1) L 02/06/23 20:00 Plt Count 194 10^3/cmm (130-400) 02/06/23 20:00 MPV 10.1 fL (7.4-10.4) 02/06/23 20:00 Neut % (Auto) 57.9 % 02/06/23 20:00 Lymph % (Auto) 29.7 % 02/06/23 20:00 Gonzales % (Auto) 8.4 % 02/06/23 20:00 Eos % (Auto) 3.0 % 02/06/23 20:00 Baso % (Auto) 0.6 % 02/06/23 20:00 Neut # (Auto) 4.56 10^3/uL (1.8-7.7) 02/06/23 20:00 Lymph # (Auto) 2.3 10^3/uL (0.8-4.8) 02/06/23 20:00 [place] # (Auto) 0.7 10^3/uL (0.2-0.9) 02/06/23 20:00 Eos # (Auto) 0.2 10^3/uL (0.0-0.8) 02/06/23 20:00 Baso # (Auto) 0.1 10^3/uL (0.0-0.1) 02/06/23 20:00 Nucleated RBC % (auto) 0 % 02/06/23 20:00 Nucleated RBCs # 0.0 /100WBC 02/06/23 20:00 ESR < 1 mm/hr (0-10) 02/06/23 20:00 D-Dimer <= 0.27 ug/mIFEU (0-0.59) 02/06/23 20:00 Sodium 140 mmol/L (136-145) 02/06/23 20:00 Potassium 3.7 mmol/L (3.5-5.1) 02/06/23 20:00 Chloride 105 mmol/L (98-107) 02/06/23 20:00 Carbon Dioxide 23 mmol/L (22-29) 02/06/23 20:00 Anion Gap 15.7 (5-19) 02/06/23 20:00 BUN 10 mg/dL (6-20) 02/06/23 20:00 Creatinine 1.2 mg/dL (0.7-1.2) 02/06/23 20:00 GFR Calculation 73.8 mL/min (90-130) L 02/06/23 20:00 Glucose 95 mg/dL (65-115) 02/06/23 20:00 Calculated Osmolality 289 mOsm/kg (285-295) 02/06/23 20:00 Calcium 9.5 mg/dL (8.5-10.5) 02/06/23 20:00 Total Bilirubin 0.8 mg/dL (0.15-1.2) 02/06/23 20:00 AST 18 U/L (0-40) 02/06/23 20:00 ALT 27 U/L (0-41) 02/06/23 20:00 Alkaline Phosphatase 76 U/L (40-130) 02/06/23 20:00 Troponin T Baseline 10 ng/L (0-15) 02/06/23 20:00 Troponin T 120 Minute 9.36 ng/L (0-15) 02/06/23 21:53 Delta Troponin T -0.64 ABS# (0-10) L 02/06/23 21:53 C-Reactive Protein 3.0 mg/L (0.0-4.9) 02/06/23 20:00 NT-Pro-B Natriuret Pep 36 pg/mL (0-125) 02/06/23 20:00 Total Protein 6.8 g/dL (6.6-8.7) 02/06/23 20:00 Albumin 5.0 g/dL (3.5-5.2) 02/06/23 20:00 Globulin 1.8 g/dL (1.3-4.6) 02/06/23 20:00 Lipase 20 U/L (13-60) 02/06/23 20:00 SARS-CoV-2 Ag (Rapid) negative (Negative) 02/06/23 21:55 Discharge Plan Discharge Patient Disposition: Home Clinical Impression: Chest pain, Syncopal episodes, Smoking addiction Condition: Stable Prescriptions: New albuterol sulfate 90 mcg/actuation HFA aerosol inhaler 2 inh inhalation Q4H PRN (Reason: shortness of breath or wheezing) Qty: 8.5 0RF No Action clonazepam 0.5 mg tablet 0.5 mg PO QAM 90 Days Qty: 90 3RF Lamictal 100 mg tablet See Rx Instructions PO .COMPLEX 90 Days Qty: 270 3RF Rx Instructions: 100mg po qam and 200mg po bedtime mirtazapine 15 mg tablet 15 mg PO BEDTIME Qty: 90 3RF omeprazole magnesium [Prilosec OTC] 20 mg tablet,delayed release (DR/EC) 20 mg PO BID Qty: 60 0RF Aspir-81 81 mg Tablet,Delayed Release (Dr/Ec) 162 mg PO QAM Vitamin C 500 mg Tablet 500 mg PO QAM potassium gluconate 595 mg (99 mg) Tablet 595 mg PO QAM magnesium oxide 400 mg magnesium Tablet 400 mg PO QAM Topamax 100 mg tablet 100 mg PO BEDTIME ibuprofen 200 mg Tablet 800 mg PO Q6H PRN (Reason: Pain) Discharge Orders: Discharge ED (Routine); Ordered 02/06/23 Ordered By: Conrad Harvey Referrals: No Issa FNP [Primary Care Provider] - Discharge Diet: Usual diet Discharge Activity: Increase activity as tolerated Patient Instructions: Chest Pain (ED), Syncope (ED), Shortness of Breath (ED), Opioid Safety Activity Restrictions/Additional Instructions: Thank you for visiting the emergency department. You were seen and evaluated for chest pain with shortness of breath and syncopal episode. The exact cause of your symptoms is unclear however does not appear to need hospitalization at this time. As discussed, with smoking, you are at high risk for atypical infections which do not show up well on chest x-ray. I will prescribe steroids and antibiotics. Please also use your albuterol metered-dose inhaler 2 puffs every 4 hours for 24 hours followed by 2 puffs every 6 hours for 24 hours followed by 2 puffs every 8 hours for 24 hours and then return to the normal schedule. Ensure that you are staying hydrated. You may use [id number]-[id number] medications such as acetaminophen and ibuprofen for pain however please do not exceed the daily recommended dosage as listed on the packaging and please keep in mind that many namebrand medications contain the same active ingredients. Please avoid these medications if previously instructed to do so by another physician due to other underlying medical condition. Follow-up with a primary care provider. Return for worsening symptoms, any new neurologic symptoms, recurrent syncope, or anything else that you are concerned about and feel needs emergency department evaluation. Stand Alone Forms: Work/School Release Coding Level of Care Code ED Neon Glass Blower for Maurisio Serrano
[2023-02-06 20:00] VITALS: BP 130/87; PULSE 72; RESP 30; TEMP 36.9; O2SAT 97; BMI 29.0
[2023-02-06 20:03] VITALS: BP 130/87; PULSE 72; RESP 22; O2SAT 96
--- NOTE | 2023-02-06 20:08 | XRR_ITS ---
PROCEDURE INFORMATION: Exam: XR Chest Exam date and time: 02/06/2023 8:23 PM Age: 27 years old Clinical indication: Pain; Chest pressure; Additional info: Cp, syncope TECHNIQUE: Imaging protocol: Radiologic exam of the chest. Views: 1 view. COMPARISON: CR XR chest 2V* [id number] 04/26/2022 2:15 PM FINDINGS: Lungs: No consolidation. Pleural spaces: No pleural effusion. No pneumothorax. Heart/Mediastinum: No cardiomegaly. Bones/joints: Unremarkable. XR/XR chest 1V portable [id number] IMPRESSION: 1. No acute abnormality demonstrated. 2. There is no interval change from the prior examination.
--- NOTE | 2023-02-06 20:08 | ECG_ITS ---
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 Measurements Intervals [place] Rate: 78 P: 55 UT: 178 QRS: 21 QRSD: 100 T: 42 QT: 354 QTc: 404 Interpretive Statements SINUS RHYTHM Compared to ECG 04/26/2022 14:39:29 Sinus bradycardia no longer present Sinus arrhythmia no longer present Electronically Signed On 02-06-2023 23:37:43 CDT by Rafael Courtney M.D. [id number] f
[2023-02-06 20:16] LABS: Basophils # 0.1 10^3/uL (0.0-0.1); Basophils % 0.6 %; Eosinophils # 0.2 10^3/uL (0.0-0.8); Hematocrit 47.2 % (42.0-52.0); Hemoglobin 16.1 g/dL (11.7-16.6); Lymphocytes # 2.3 10^3/uL (0.8-4.8); Lymphocytes % 29.7 %; Mean Corpuscular HGB Conc 34.1 g/dL (30.0-36.0); Mean Corpuscular Hemoglobin 29.8 pg (28.0-34.0); Mean Corpuscular Volume 87.4 fl (80-94); Mean Platelet Volume 10.1 fL (7.4-10.4); Monocytes # 0.7 10^3/uL (0.2-0.9); Monocytes % 8.4 %; Neutrophils # 4.56 10^3/uL (1.8-7.7); Neutrophils % 57.9 %; Nucleated Red Blood Cells % 0 %; Platelet Count 194 10^3/cmm (130-400); Red Cell Distribution Width 11.9 % (12.1-15.1); White Blood Count 7.9 10^3/uL (4.0-10.0)
[2023-02-06 20:21] VITALS: RESP 22; O2SAT 96
[2023-02-06] MEDS: sodium chloride 0.9% 1,000 ML 999 ML IV (20:21)
[2023-02-06] MEDS: morphine 4 mg/mL SDV 1 mL IVP (20:21)
[2023-02-06] MEDS: aspirin 81 mg Chew Tablet 324 MG PO (20:21)
[2023-02-06 20:24] LABS: Erythrocyte Sedimentation Rate < 1 mm/hr (0-10)
[2023-02-06 20:25] LABS: D Dimer <= 0.27 ug/mIFEU (0-0.59)
[2023-02-06 20:30] LABS: Troponin(5th) Baseline 10 ng/L (0-15)
[2023-02-06 20:40] LABS: Alanine Aminotransferase 27 U/L (0-41); Alkaline Phosphatase 76 U/L (40-130); Anion Gap 15.7 (5-19); Aspartate Amino Transferase 18 U/L (0-40); Blood Urea Nitrogen 10 mg/dL (6-20); Calcium 9.5 mg/dL (8.5-10.5); Carbon Dioxide 23 mmol/L (22-29); Chloride 105 mmol/L (98-107); Globulin 1.8 g/dL (1.3-4.6); Glomerular Filtration Rate 73.8 mL/min (90-130); Glucose 95 mg/dL (65-115); Lipase 20 U/L (13-60); NT Pro B Type Natriuretic Pept 36 pg/mL (0-125); Osmolality Calculated 289 mOsm/kg (285-295); Potassium 3.7 mmol/L (3.5-5.1); Sodium 140 mmol/L (136-145); Total Bilirubin 0.8 mg/dL (0.15-1.2); Total Protein 6.8 g/dL (6.6-8.7)
[2023-02-06 21:32] VITALS: BP 115/71; PULSE 60; RESP 20; O2SAT 93
--- NOTE | 2023-02-06 22:12 | ECG_ITS ---
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 Measurements Intervals [place] Rate: 66 P: 14 NH: 164 QRS: 21 QRSD: 109 T: 32 QT: 410 QTc: 431 Interpretive Statements SINUS RHYTHM Compared to ECG 02/06/2023 19:56:47 No significant changes Electronically Signed On 02-06-2023 23:39:41 CDT by Rafael Courtney M.D. [id number]
[2023-02-06 22:17] LABS: SARS Covid-2 Antigen negative (Negative)
[2023-02-06 22:20] LABS: Troponin 5 2HR 9.36 ng/L (0-15)
[2023-02-06 22:35] LABS: Troponin 5 2HR Delta -0.64 ABS# (0-10)
[2023-02-06 23:05] VITALS: BP 118/64; PULSE 56; RESP 24; O2SAT 96
== END 2023-02-06 23:05 | disposition home or self-care (01) ==
PROVIDERS: Emergency Provider Emergency Medicine; PCP Nurse Practitioner Family
DX: R07.89 Other chest pain (principal); R55 Syncope and collapse; F17.200 Nicotine dependence, unspecified, uncomplicated
CPT/HCPCS: 36415; 71045; 80053; 83690; 83880; 84484; 85025; 85378; 85651; 86140; 87426; 93005; 96361; 96374; 99285; J2270; J7030

== ENCOUNTER 2023-02-16 07:31 | Emergency (ER) | payer OTHER, SELFPAY ==
[2023-02-16 07:36] VITALS: BP 116/89; PULSE 82; RESP 18; TEMP 37; O2SAT 100; BMI 30.3
--- NOTE | 2023-02-16 07:43 | ECG_ITS ---
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 Measurements Intervals [place] Rate: 85 P: 49 [place]: 167 QRS: 18 QRSD: 94 T: 39 QT: 346 QTc: 412 Interpretive Statements SINUS RHYTHM WITH SINUS ARRHYTHMIA Compared to ECG 02/06/2023 22:12:36 No significant changes Electronically Signed On 02-16-2023 19:51:26 CDT by Karin Alston M.D. [id number] f
--- NOTE | 2023-02-16 07:45 | ED_ITS ---
HPI - Chest Pain General: Chief Complaint: Chest Pain Stated Complaint: chest pain, passing out, dizzy Time Seen by Provider: 02/16/23 07:33 History of Present Illness: 27-year-old male presents emergency department with complaints of having syncopal and near syncopal episodes intermittently over the previous 1 week. He states he was seen here a week ago and evaluated and does have a follow-up appointment with his primary care provider in 2 days. He is accompanied by his family member who states this morning he had a generalized allover seizure right after he had his syncopal episode she states that he did not have a postictal period after his hyper motor activity. She states he does become very sweaty at the time of the event. He denies shortness of breath, nausea, vomiting, fevers chills or night sweats. He states that he does see a neurologist for his seizure activity. Review of Systems General: Reports: 10 or more systems reviewed and unremarkable except in HPI and below Card: Reports: lightheadedness and pre-syncope Neuro: Reports: seizure-like activity [facility] ED PFSH: Medical History Epilepsy Psychiatric care Psychogenic nonepileptic seizure Social History Smoking and tobacco status: never smoked Alcohol intake: never Substance/Drug Use: never Physical Exam Const: COMMON NORMALS: no acute distress, average body habitus, patient oriented x3, no limitations, healthy appearing, alert and well nourished HENMT: COMMON NORMALS: normocephalic, atraumatic, hearing grossly normal bilaterally and moist oral mucous membranes HEAD & SCALP: normocephalic and atraumatic Eye: COMMON NORMALS: Equal, round and reactive pupils present and EOMs intact bilaterally PUPIL: Yes Equal, round and reactive pupils present Neck/C-Spine: COMMON NORMALS: full ROM, no lymphadenopathy and supple Chest: COMMONS NORMALS: normal inspection of the chest and normal palpation of entire chest wall Resp: COMMON NORMALS: normal respiratory effort and clear to auscultation bilaterally AUSCULTATION: clear to auscultation bilaterally Cardio: COMMON NORMALS: regular rate, regular rhythm, S1 normal heart sound present, S2 normal heart sound present and Peripheral pulses 2+ throughout RATE: regular rate RHYTHM: regular rhythm HEART SOUNDS: S1 normal heart sound present and S2 normal heart sound present PERIPHERAL PULSES: Peripheral pulses 2+ throughout GI: COMMON NORMALS: Normal to inspection, nondistended, normoactive bowel sounds present, Soft to palpation, non-tender and No hepatosplenomegaly present PALPATION: Yes Soft to palpation and Yes No hepatosplenomegaly present Back/Pelvis: COMMON NORMALS: thoracic and lumbar spine normal to inspection Extremity: COMMON NORMALS: normal to inspection, full ROM and capillary refill normal Neuro: COMMON NORMALS: patient oriented x3, CN's II-XII intact bilaterally, moves all extremities, no focal motor deficits, no sensory deficits noted and deep tendon reflexes 2+ bilaterally SENSORIUM/ORIENTATION: Yes alert Psych: COMMON NORMALS: mental status grossly normal, Normal thought process present, cooperative and normal affect THOUGHT PROCESS: Normal thought process present Skin: COMMON NORMALS: no rashes or lesions noted and turgor normal GENERAL SKIN EXAM: no rashes or lesions noted and turgor normal Course Vital Signs: Vital signs: Vital Signs Temperature 98.6 F 02/16/23 07:36 Pulse Rate 57 L 02/16/23 11:00 Respiratory Rate 23 H 02/16/23 11:00 Blood Pressure 145/98 02/16/23 11:00 Pulse Oximetry 99 02/16/23 11:00 Oxygen Delivery Me thod Room Air 02/16/23 09:02 MDM - Chest Pain Medical Decision Making Physical exam completed and documented we will obtain laboratory evaluation to check for dehydration as well as a lactic acid to verify his seizure activity, we will check his electrolytes and replace as needed. We obtained a twelve-lead EKG that is sinus rhythm with no acute findings. Given that the patient has already been placed on antiepileptics we will encourage him to continue with those medications. And also to keep his pre-existing appointment. Medical Records I reviewed the patient's medical records. Lab Data I reviewed the patient's lab results. 02/16/23 07:40 02/16/23 07:40 Radiology Impressions Chest X-Ray 02/16/23 09:35 IMPRESSION: No acute findings. Laboratory Results WBC 6.6 10^3/uL (4.0-10.0) 02/16/23 07:40 RBC 5.31 10^6/uL (4.1-5.3) H 02/16/23 07:40 Hgb 15.9 g/dL (11.7-16.6) 02/16/23 07:40 Hct 47.2 % (42.0-52.0) 02/16/23 07:40 MCV 88.9 fl (80-94) 02/16/23 07:40 MCH 29.9 pg (28.0-34.0) 02/16/23 07:40 MCHC 33.7 g/dL (30.0-36.0) 02/16/23 07:40 RDW 12.1 % (12.1-15.1) 02/16/23 07:40 Plt Count 188 10^3/cmm (130-400) 02/16/23 07:40 MPV 10.5 fL (7.4-10.4) H 02/16/23 07:40 Neut % (Auto) 51.0 % 02/16/23 07:40 Lymph % (Auto) 34.3 % 02/16/23 07:40 Simpson % (Auto) 10.9 % 02/16/23 07:40 Eos % (Auto) 2.6 % 02/16/23 07:40 Baso % (Auto) 0.6 % 02/16/23 07:40 Neut # (Auto) 3.36 10^3/uL (1.8-7.7) 02/16/23 07:40 Lymph # (Auto) 2.3 10^3/uL (0.8-4.8) 02/16/23 07:40 Simpson # (Auto) 0.7 10^3/uL (0.2-0.9) 02/16/23 07:40 Eos # (Auto) 0.2 10^3/uL (0.0-0.8) 02/16/23 07:40 Baso # (Auto) 0.0 10^3/uL (0.0-0.1) 02/16/23 07:40 Nucleated RBC % (auto) 0 % 02/16/23 07:40 Nucleated RBCs # 0.0 /100WBC 02/16/23 07:40 Sodium 141 mmol/L (136-145) 02/16/23 07:40 Potassium 3.9 mmol/L (3.5-5.1) 02/16/23 07:40 Chloride 105 mmol/L (98-107) 02/16/23 07:40 Carbon Dioxide 24 mmol/L (22-29) 02/16/23 07:40 Anion Gap 15.9 (5-19) 02/16/23 07:40 BUN 14 mg/dL (6-20) 02/16/23 07:40 Creatinine 1.2 mg/dL (0.7-1.2) 02/16/23 07:40 GFR Calculation 73.8 mL/min (90-130) L 02/16/23 07:40 Glucose 95 mg/dL (65-115) 02/16/23 07:40 POC Glucose 96 mg/dL (70-110) 02/16/23 07:51 Calculated Osmolality 292 mOsm/kg (285-295) 02/16/23 07:40 Lactic Acid 1.7 mmol/L (0.5-2.2) 02/16/23 07:40 Calcium 9.6 mg/dL (8.5-10.5) 02/16/23 07:40 Total Bilirubin 0.6 mg/dL (0.15-1.2) 02/16/23 07:40 AST 19 U/L (0-40) 02/16/23 07:40 ALT 36 U/L (0-41) 02/16/23 07:40 Alkaline Phosphatase 66 U/L (40-130) 02/16/23 07:40 Troponin T Baseline 19 ng/L (0-15) H 02/16/23 07:40 Troponin T 120 Minute 12.36 ng/L (0-15) 02/16/23 09:40 Delta Troponin T -6.64 ABS# (0-10) L 02/16/23 09:40 Total Protein 6.2 g/dL (6.6-8.7) L 02/16/23 07:40 Albumin 4.6 g/dL (3.5-5.2) 02/16/23 07:40 Globulin 1.6 g/dL (1.3-4.6) 02/16/23 07:40 Urine Color Yellow (Yellow) 02/16/23 08:45 Urine Appearance Clear (CLEAR) 02/16/23 08:45 Urine pH 6.5 (5-7) 02/16/23 08:45 Ur Specific [place] 1.010 (1.005-1.030) 02/16/23 08:45 Urine Protein Neg (Negative) 02/16/23 08:45 Urine Glucose (UA) Norm (Normal) 02/16/23 08:45 Urine Ketones Negative (Negative) 02/16/23 08:45 Urine Blood Neg (Negative) 02/16/23 08:45 Urine Nitrate Negative (Negative) 02/16/23 08:45 Urine Bilirubin Neg (Negative) 02/16/23 08:45 Urine Urobilinogen Norm mg/dL (Negative) 02/16/23 08:45 Ur Leukocyte Esterase Negative (Negative) 02/16/23 08:45 Imaging Data CXR: My impression: No acute findings noted EKG Data EKG 1: I personally reviewed and interpreted this EKG as follows: EKG interpretation date: 02/16/23 EKG interpretation time: 07:42 Prior EKG tracings: available for review Ischemic changes: other (none) Interpretation: Sinus rhythm with arrhythmia, ventricular rate 85 [place] interval 167 QRS duration 94 QT [address] elevation or depression at present. Previous EKG reviewed. Discharge Plan Discharge Patient Disposition: Home Clinical Impression: Vasovagal near syncope, Chest pain, atypical Condition: Stable Prescriptions: No Action clonazepam 0.5 mg tablet 0.5 mg PO QAM 90 Days Qty: 90 3RF Lamictal 100 mg tablet See Rx Instructions PO .COMPLEX 90 Days Qty: 270 3RF Rx Instructions: 100mg po qam and 200mg po bedtime mirtazapine 15 mg tablet 15 mg PO BEDTIME Qty: 90 3RF doxycycline hyclate 100 mg capsule 100 mg PO BID Rx Instructions: for 10 days (rx filled 02/07/23) aspirin [Aspir-81] 81 mg Tablet,Delayed Release (Dr/Ec) 162 mg PO QAM ascorbic acid (vitamin C) [Vitamin C] 500 mg Tablet 500 mg PO QAM potassium gluconate 595 mg (99 mg) Tablet 595 mg PO QAM magnesium oxide 400 mg magnesium Tablet 400 mg PO QAM topiramate [Topamax] 100 mg tablet 100 mg PO BEDTIME ibuprofen 200 mg Tablet 800 mg PO Q6H PRN (Reason: Pain) albuterol sulfate 90 mcg/actuation HFA aerosol inhaler 2 inh inhalation Q4H PRN (Reason: shortness of breath or wheezing) Qty: 8.5 0RF Discharge Orders: Discharge ED (Routine); Ordered 02/16/23 Ordered By: Domo Cr Referrals: Korey Keller HAND SIZER [Primary Care Provider] - Patient Instructions: Opioid Safety, Pain Management Coding Level of Care Code ED Packing Machine Tender for Maurisio Serrano
[2023-02-16 07:54] LABS: Glucose Point of Care 96 mg/dL (70-110)
[2023-02-16 08:32] LABS: Basophils % 0.6 %; Eosinophils # 0.2 10^3/uL (0.0-0.8); Eosinophils % 2.6 %; Hematocrit 47.2 % (42.0-52.0); Hemoglobin 15.9 g/dL (11.7-16.6); Lymphocytes # 2.3 10^3/uL (0.8-4.8); Lymphocytes % 34.3 %; Mean Corpuscular HGB Conc 33.7 g/dL (30.0-36.0); Mean Corpuscular Hemoglobin 29.9 pg (28.0-34.0); Mean Corpuscular Volume 88.9 fl (80-94); Mean Platelet Volume 10.5 fL (7.4-10.4); Monocytes # 0.7 10^3/uL (0.2-0.9); Monocytes % 10.9 %; Neutrophils # 3.36 10^3/uL (1.8-7.7); Nucleated Red Blood Cells % 0 %; Platelet Count 188 10^3/cmm (130-400); Red Blood Count 5.31 10^6/uL (4.1-5.3); Red Cell Distribution Width 12.1 % (12.1-15.1); White Blood Count 6.6 10^3/uL (4.0-10.0)
[2023-02-16 08:50] LABS: Alanine Aminotransferase 36 U/L (0-41); Albumin Level 4.6 g/dL (3.5-5.2); Alkaline Phosphatase 66 U/L (40-130); Anion Gap 15.9 (5-19); Aspartate Amino Transferase 19 U/L (0-40); Blood Urea Nitrogen 14 mg/dL (6-20); Calcium 9.6 mg/dL (8.5-10.5); Carbon Dioxide 24 mmol/L (22-29); Chloride 105 mmol/L (98-107); Globulin 1.6 g/dL (1.3-4.6); Glomerular Filtration Rate 73.8 mL/min (90-130); Glucose 95 mg/dL (65-115); Osmolality Calculated 292 mOsm/kg (285-295); Potassium 3.9 mmol/L (3.5-5.1); Sodium 141 mmol/L (136-145); Total Bilirubin 0.6 mg/dL (0.15-1.2); Total Protein 6.2 g/dL (6.6-8.7)
[2023-02-16 08:51] LABS: Lactic Sepsis W/Reflex 1.7 mmol/L (0.5-2.2); Troponin(5th) Baseline 19 ng/L (0-15)
[2023-02-16 09:02] VITALS: BP 129/79; PULSE 59; RESP 21; O2SAT 98
--- NOTE | 2023-02-16 09:35 | XRR_ITS ---
PROCEDURE INFORMATION: Exam: XR Chest Exam date and time: 02/16/2023 9:41 AM Age: 27 years old Clinical indication: Pain; Chest pressure; Additional info: Cxp TECHNIQUE: Imaging protocol: Radiologic exam of the chest. Views: 1 view. Total images: 1 COMPARISON: CR (CHEST, ) 02/06/2023 8:23 PM FINDINGS: Lungs: Unremarkable. No consolidation. Pleural spaces: Unremarkable. No pleural effusion. No pneumothorax. Heart/Mediastinum: Unremarkable. No cardiomegaly. Bones/joints: Unremarkable. XR/XR chest 1V portable [id number] IMPRESSION: No acute findings.
[2023-02-16 09:41] LABS: Add Urine Microscopic? NO; Charge for UA Resulting for Rev
--- NOTE | 2023-02-16 09:43 | ECG_ITS ---
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 Measurements Intervals [place] Rate: 60 P: 17 [place]: 178 QRS: 21 QRSD: 100 T: 30 QT: 384 QTc: 385 Interpretive Statements SINUS RHYTHM WITH SINUS ARRHYTHMIA Compared to ECG 02/16/2023 07:42:05 No significant changes Electronically Signed On 02-16-2023 20:04:10 CDT by Karin Alston M.D. [email or web address] avon [email or web address]/[id number]
[2023-02-16 09:57] LABS: Urine Appearance Clear (CLEAR); Urine Color Yellow (Yellow)
[2023-02-16 09:58] LABS: Bilirubin Urine Neg (Negative); Blood Urine Neg (Negative); Glucose Urine UA Norm (Normal); Ketones Urine Negative (Negative); Leukocyte Esterase Urine Negative (Negative); Nitrate Urine Negative (Negative); Protein Urine Neg (Negative); Urobilinogen Urine Norm (Negative); pH Urine 6.5 (5-7)
[2023-02-16 10:00] VITALS: PULSE 63; O2SAT 98
[2023-02-16 10:18] LABS: Troponin 5 2HR 12.36 ng/L (0-15)
[2023-02-16 10:30] VITALS: BP 145/89; PULSE 58; O2SAT 98
[2023-02-16 11:00] VITALS: BP 145/98; PULSE 57; RESP 23; O2SAT 99
--- NOTE | 2023-02-16 12:32 | PC.PHAR ---
pts verified pts medications-states the pt finished his prednisone 50mg on 02/14/23
[2023-02-16 12:40] VITALS: BP 145/90; PULSE 55; O2SAT 98
== END 2023-02-16 12:41 | disposition home or self-care (01) ==
PROVIDERS: Emergency Provider Internal Medicine; PCP Clinical Nurse Specialist Adult Health
DX: R07.9 Chest pain, unspecified (principal); R55 Syncope and collapse; Z79.82 Long term (current) use of aspirin
CPT/HCPCS: 36416; 71045; 80053; 81003; 82962; 83605; 84484; 85025; 93005; 99285

== ENCOUNTER → 2023-02-18 13:03 | Outpatient (BNVA) | payer OTHER, SELFPAY | PROVIDERS: PCP Clinical Nurse Specialist Adult Health; Visit Provider Clinical Nurse Specialist Adult Health | DX: R07.89 Other chest pain (principal) | CPT/HCPCS: 84484 ==

== ENCOUNTER 2024-06-06 15:08 | Emergency (ER) | payer SELFPAY ==
[2024-06-06 15:10] VITALS: BP 139/85; PULSE 127; RESP 20; TEMP 37.6; O2SAT 96; BMI 33.6
[2024-06-06 15:32] LABS: Rapid Strep A Test Negative (Negative)
[2024-06-06 16:07] LABS: Covid PCR NEGATIVE (Negative); Influenza A NEGATIVE (Negative); Influenza B NEGATIVE (Negative); Respiratory Syncytial Virus Ce NEGATIVE (Negative)
[2024-06-06] MEDS: dexamethasone 10 mg/mL INJ IM (18:31)
[2024-06-06] MEDS: albuterol 2.5 mg/3 mL Neb INHALATION (18:36)
[2024-06-06 18:39] VITALS: PULSE 91; RESP 18; O2SAT 96
[2024-06-06 18:43] VITALS: PULSE 92
--- NOTE | 2024-06-06 18:59 | W.ED.URI ---
HPI - URI/Sore Throat General: Chief Complaint: Upper Respiratory Infection Stated Complaint: fever, congestion, cough, sore throat Time Seen by Provider: 06/06/24 15:43 Source: patient and family Mode of arrival: ambulatory Limitations: no limitations History of Present Illness: Patient presents emergency department today accompanied by significant other for evaluation treatment of approximately 2 to 3 days of upper respiratory symptoms including nasal congestion, sore throat, left ear pain, and fever. Patient reports temperatures up to 102. Reports he does have a history of asthma and feels tight in his chest but, does not use inhalers. There are other similarly ill at home right now. He has had some loose stools and admits to decreased appetite with decreased oral intake. He has not had any vomiting. Related Data Home Medications Medication Instructions Recorded Confirmed ibuprofen 200 mg tablet 800 mg PO Q6H PRN Pain 10/23/21 12/31/23 ascorbic acid (vitamin C) 500 mg 500 mg PO QAM 02/16/23 12/31/23 tablet (Vitamin C) aspirin 81 mg tablet,delayed 162 mg PO QAM 02/16/23 12/31/23 release magnesium oxide 400 mg PO QAM 02/16/23 12/31/23 potassium gluconate 595 mg (99 mg) 595 mg PO QAM 02/16/23 12/31/23 tablet Previous Rx's Medication Instructions Recorded albuterol sulfate 90 mcg/actuation 2 inh inhalation Q4H PRN shortness 02/06/23 aerosol inhaler of breath or wheezing #8.5 grams omeprazole 40 mg capsule,delayed 40 mg PO BID #60 caps 03/20/23 release lamotrigine 100 mg tablet See Rx Instructions PO .COMPLEX 90 12/31/23 (Lamictal) days #270 tabs topiramate 100 mg tablet (Topamax) 100 mg PO BEDTIME #90 tabs 12/31/23 mirtazapine 15 mg tablet See Rx Instructions .Route 02/09/24 .COMPLEX #90 tabs clonazepam 0.5 mg tablet 0.5 mg PO QAM 90 days #90 tabs 05/21/24 albuterol sulfate 90 mcg/actuation 2 inh inhalation Q4H PRN shortness 06/06/24 aerosol inhaler (Ventolin HFA) of breath or wheezing #8.5 grams methylprednisolone 4 mg tablets in See Rx Instructions PO .COMPLEX 06/06/24 a dose pack (Medrol (Cresencio)) #21 ea Allergies Allergy/AdvReac Type Severity Reaction Status Date / Time No Known Allergies Allergy Verified 06/06/24 15:16 Review of Systems General: Reports: 10 or more systems reviewed and unremarkable except in HPI and below PFSH ED PFSH: Medical History GERD (gastroesophageal reflux disease) Psychogenic nonepileptic seizure Epilepsy Surgical History History of appendectomy Social History Smoking and tobacco/nicotine status: current every day tobacco/nicotine user (tobacco 1/2 pack weekly. Vapes daily) cigarettes Alcohol intake: never Substance/Drug Use: never Physical Exam Const: COMMON NORMALS: no acute distress, patient oriented x3 and alert OTHER: Patient is pleasant, social. Answers his own history. HENMT: OTHER: TMs are translucent bilaterally with minimal erythema and no purulent accumulation behind the eardrums. EACs are clear. Pharynx is notably erythematous but without signs of exudate. Mucous membranes are moist. Eye: COMMON NORMALS: Equal, round and reactive pupils present, EOMs intact bilaterally and conjunctivae normal CONJUNCTIVA: Yes conjunctivae normal PUPIL: Yes Equal, round and reactive pupils present Neck/C-Spine: COMMON NORMALS: no JVD Lymph: LYMPHATIC: no lymphadenopathy noted Resp: COMMON NORMALS: normal respiratory effort, No retractions and No use of accessory muscles OTHER: Patient's airways are tight but no rhonchi. Pulse ox 96% on room air Cardio: COMMON NORMALS: no JVD and regular rate RATE: regular rate : COMMON NORMALS: Yes no CVA tenderness BLADDER/KIDNEY EXAM: Yes no CVA tenderness Back/Pelvis: COMMON NORMALS: no CVA tenderness, thoracic and lumbar spine normal to inspection and thoraco-lumbar ROM normal Extremity: COMMON NORMALS: normal to inspection, full ROM and no pedal edema Neuro: COMMON NORMALS: patient oriented x3 SENSORIUM/ORIENTATION: Yes alert Skin: COMMON NORMALS: no rashes or lesions noted and turgor normal GENERAL SKIN EXAM: no rashes or lesions noted and turgor normal Course Vital Signs: Vital signs: Vital Signs Temperature 99.7 F H 06/06/24 15:10 Pulse Rate 92 06/06/24 18:43 Respiratory Rate 18 06/06/24 18:39 Blood Pressure 139/85 06/06/24 15:10 Pulse Oximetry 96 06/06/24 18:39 Oxygen Delivery Me thod Room Air 06/06/24 18:39 MDM - URI/Sore Throat Medical Decision Making Patient presented to the emergency department today with upper respiratory symptoms for a couple of days. He has multiple symptoms including nasal congestion, sore throat, cough. His airways are tight but I do not appreciate any signs of rhonchi. Oxygen is 96%. His throat is very red but no exudate. He tested negative for COVID, RSV, influenza, and strep today. Discussed this with him. Explained we do have lots of upper respiratory viral illnesses going around right now and would expect him to remain symptomatic for another few days. We discussed symptomatic treatment for him. I provided him a breathing treatment here in the emergency department as well as a steroid injection. I gave him a prescription for an albuterol inhaler and a Medrol Dosepak should he wish to continue treatment starting in the morning. Encouraged continued use of [id number] cough and cold medications and discussed the importance of him staying well-hydrated during this time. He was given return precautions for change or worsening in condition including signs of respiratory distress or dehydration. He verbalizes his understanding and agreement to the treatment plan. Differential Diagnosis Likely upper respiratory infection, viral infection and pharyngitis; Unlikely croup, otitis media or influenza Lab Data Laboratory Results Coronavirus (PCR) Negative (Negative) 06/06/24 15:17 Influenza A (PCR) Negative (Negative) 06/06/24 15:17 Influenza Type B (PCR) Negative (Negative) 06/06/24 15:17 RSV (PCR) Negative (Negative) 06/06/24 15:17 Group A Strep Rapid Negative (Negative) 06/06/24 15:17 No radiology studies performed this visit Discharge Plan Discharge Patient Disposition: Home Clinical Impression: Viral infection, Pharyngitis Condition: Stable Prescriptions: New albuterol sulfate [Ventolin HFA] 90 mcg/actuation HFA aerosol inhaler 2 inh inhalation Q4H PRN (Reason: shortness of breath or wheezing) Qty: 8.5 0RF methylprednisolone [Medrol (Cresencio)] 4 mg tablets,dose pack See Rx Instructions .ROUTE .COMPLEX Qty: 21 0RF Rx Instructions: for 6 days No Action Lamictal 100 mg tablet See Rx Instructions PO .COMPLEX 90 Days Qty: 270 3RF Rx Instructions: 100mg po qam and 200mg po bedtime Topamax 100 mg tablet 100 mg PO BEDTIME Qty: 90 3RF omeprazole 40 mg capsule,delayed release(DR/EC) 40 mg PO BID Qty: 60 11RF mirtazapine 15 mg tablet See Rx Instructions .ROUTE .COMPLEX Qty: 90 3RF Dose Instruction: TAKE 1 TABLET BY MOUTH AT BEDTIME Rx Instructions: TAKE 1 TABLET BY MOUTH AT BEDTIME clonazepam 0.5 mg tablet 0.5 mg PO QAM 90 Days Qty: 90 3RF Aspir-81 81 mg Tablet,Delayed Release (Dr/Ec) 162 mg PO QAM Vitamin C 500 mg Tablet 500 mg PO QAM potassium gluconate 595 mg (99 mg) Tablet 595 mg PO QAM magnesium oxide 400 mg magnesium Tablet 400 mg PO QAM ibuprofen 200 mg Tablet 800 mg PO Q6H PRN (Reason: Pain) albuterol sulfate 90 mcg/actuation HFA aerosol inhaler 2 inh inhalation Q4H PRN (Reason: shortness of breath or wheezing) Qty: 8.5 0RF Discharge Orders: Discharge ED (Routine); Ordered 06/06/24 Ordered By: Julianna Gutierrez Referrals: Korey Keller, PLAN REP [Primary Care Provider] - Discharge Diet: Usual diet Discharge Activity: Increase activity as tolerated Patient Instructions: Upper Respiratory Infection (DC) Activity Restrictions/Additional Instructions: You are COVID, flu, RSV, and strep negative today. However, you are still ill with one of the many viral illnesses we do have going around right now. Unfortunately, viral illnesses last 5 to 7 days with the third day typically being the worst. We provided you a breathing treatment and some steroids here in the emergency department. Have given you a prescription for an albuterol inhaler and a steroid pack which you can cigar packer and picker and begin using if you still feel symptomatic and not having improvement after another 24 to 48 hours. You can still use [id number] cough and cold medication during this time. Severe important that you rest and hydrate. If you feel like you are having change in your condition including developing dehydration or respiratory distress need to be seen and reevaluated again. Coding Level of Care Code ED Product Applications Scientist for Maurisio Serrano
[2024-06-06 19:20] VITALS: PULSE 107; RESP 18; O2SAT 96
== END 2024-06-06 19:22 | disposition home or self-care (01) ==
PROVIDERS: Emergency Medicine; Emergency Provider Physician Assistant; PCP Clinical Nurse Specialist Adult Health
DX: J02.9 Acute pharyngitis, unspecified (principal); Z11.52 Encounter for screening for COVID-19; F17.290 Nicotine dependence, other tobacco product, uncomplicated
CPT/HCPCS: 0241U; 87081; 87880; 94640; 96372; 99284; J1100; J7613

== ENCOUNTER 2024-08-23 15:23 | Emergency (ER) | payer SELFPAY ==
--- NOTE | 2024-08-23 15:26 | ECG_ITS ---
[facility]: 2024-08-23 Pat Name: Rakesh Murcia Department: Room: Gender: Male Certified Dialysis Technician: : 1995 Requested By: Mauri Lugo Order Number: [id number] Marsha MD: Karin Alston M.D. Measurements Intervals [place] Rate: 122 P: 52 MO: 170 QRS: 38 QRSD: 94 T: 25 QT: 325 QTc: 463 Interpretive Statements SINUS TACHYCARDIA ABNORMAL RHYTHM ECG Compared to ECG 02/16/2023 09:55:42 Sinus rhythm no longer present Sinus arrhythmia no longer present Electronically Signed On 08-25-2024 18:25:57 HAND COLLATOR by Karin Alston M.D. [email or web address]
[2024-08-23 15:27] VITALS: BP 152/87; PULSE 113; RESP 18; O2SAT 98
[2024-08-23 15:44] VITALS: BP 152/87; PULSE 94; O2SAT 94
[2024-08-23 15:44] LABS: Glucose Point of Care 98 mg/dL (70-110)
--- NOTE | 2024-08-23 15:44 | W.ED.SEIZURE ---
HPI - Seizure General: Chief Complaint: Seizure Stated Complaint: seizing Time Seen by Provider: 08/23/24 15:44 History of Present Illness: HPI Narrative: 29-year-old male With a history of pseudoseizures/conversion disorder. He is seeing neurology. Had episode today while at work. He continues to have episode after he arrives here he had been given some Versed and route. However when he arrives here he is having these episodes that he is cognizant he is following motion around the room following commands continues to tremble. Does not appear to be actually seizing at this time. Later patient stopped the motion activity was not postictal he is awake and alert answers questions gives history Seizure History: Yes Associated symptoms: Deny chest pain, chills or fever(s) Related Data Home Medications ?Medication ?Instructions ?Recorded ?Confirmed ibuprofen 200 mg tablet 800 mg PO Q6H PRN Pain 10/23/21 08/23/24 ascorbic acid (vitamin C) 500 mg 500 mg PO QAM 02/16/23 08/23/24 tablet (Vitamin C) aspirin 81 mg tablet,delayed 162 mg PO QAM 02/16/23 08/23/24 release magnesium oxide 400 mg PO QAM 02/16/23 08/23/24 potassium gluconate 595 mg (99 mg) 595 mg PO QAM 02/16/23 08/23/24 tablet mirtazapine 15 mg tablet 15 mg PO BEDTIME 08/23/24 08/23/24 Previous Rx's ?Medication ?Instructions ?Recorded lamotrigine 100 mg tablet See Rx Instructions PO .COMPLEX 90 12/31/23 (Lamictal) days #270 tabs topiramate 100 mg tablet (Topamax) 100 mg PO BEDTIME #90 tabs 12/31/23 clonazepam 0.5 mg tablet 0.5 mg PO QAM 90 days #90 tabs 05/21/24 albuterol sulfate 90 mcg/actuation 2 inh inhalation Q4H PRN shortness 06/06/24 aerosol inhaler (Ventolin HFA) of breath or wheezing #8.5 grams Allergies Allergy/AdvReac Type Severity Reaction Status Date / Time No Known Allergies Allergy Verified 06/06/24 15:16 Review of Systems Const: Denies: fever(s) or chills Card: Denies: chest pain Resp: Denies: dyspnea GI: Denies: abdominal pain : Denies: dysuria, urinary frequency or urinary urgency Musc: Denies: neck pain or back pain Skin/Breast: Denies: rash PFSH ED PFSH: Medical History GERD (gastroesophageal reflux disease) Psychogenic nonepileptic seizure Epilepsy Surgical History History of appendectomy Social History Smoking and tobacco/nicotine status: current every day tobacco/nicotine user (tobacco 1/2 pack weekly. Vapes daily) cigarettes Alcohol intake: never Substance/Drug Use: never Physical Exam Const: COMMON NORMALS: no acute distress GENERAL APPEARANCE: cooperative and comfortable ORIENTATION/CONSCIOUSNESS: Yes awake, Yes oriented to person, Yes oriented to place and Yes oriented to time HENMT: COMMON NORMALS: normocephalic, atraumatic and hearing grossly normal bilaterally HEAD & SCALP: normocephalic and atraumatic Resp: COMMON NORMALS: normal respiratory effort, No retractions, No use of accessory muscles and clear to auscultation bilaterally AUSCULTATION: clear to auscultation bilaterally Cardio: COMMON NORMALS: regular rate, regular rhythm and No murmurs present (Cardio) RATE: regular rate RHYTHM: regular rhythm GI: COMMON NORMALS: Soft to palpation and No hepatosplenomegaly present AUSCULTATION: Yes normoactive bowel sounds PALPATION: Yes Soft to palpation, No Tenderness to palpation present (GI), No Guarding due to palpation present (GI) and Yes No hepatosplenomegaly present Extremity: COMMON NORMALS: normal to inspection, capillary refill normal, no clubbing, cyanosis or edema, no calf tenderness and no pedal edema Neuro: SENSORIUM/ORIENTATION: Yes oriented to person, Yes oriented to place and Yes oriented to time Skin: COMMON NORMALS: no rashes or lesions noted GENERAL SKIN EXAM: no rashes or lesions noted Course Vital Signs: Vital signs: Vital Signs Pulse Rate 73 08/23/24 16:17 Respiratory Rate 18 08/23/24 15:27 Blood Pressure 127/77 08/23/24 16:17 Pulse Oximetry 98 08/23/24 16:17 Oxygen Delivery Me thod Room Air 02/10/25 16:07 MDM - Seizure MDM Narrative Medical decision making narrative: Pseudoseizures/conversion disorder patient now awake and alert episodes of stopped. No postictal phase blood glucose normal will discharge patient home have him follow-up with Dr. Dumont. Lab Data Labs: Laboratory Results POC Glucose 98 mg/dL (70-110) 08/23/24 15:41 No radiology studies performed this visit Discharge Plan Discharge Patient Disposition: Home Clinical Impression: Psychogenic nonepileptic seizure Condition: Stable Prescriptions: No Action Lamictal 100 mg tablet See Rx Instructions PO .COMPLEX 90 Days Qty: 270 3RF Rx Instructions: Take 1 tablet by mouth in the morning and 2 tablets at bedtime. Topamax 100 mg tablet 100 mg PO BEDTIME Qty: 90 3RF clonazepam 0.5 mg tablet 0.5 mg PO QAM 90 Days Qty: 90 3RF aspirin [Aspir-81] 81 mg Tablet,Delayed Release (Dr/Ec) 162 mg PO QAM ascorbic acid (vitamin C) [Vitamin C] 500 mg Tablet 500 mg PO QAM potassium gluconate 595 mg (99 mg) Tablet 595 mg PO QAM magnesium oxide 400 mg magnesium Tablet 400 mg PO QAM albuterol sulfate [Ventolin HFA] 90 mcg/actuation HFA aerosol inhaler 2 inh inhalation Q4H PRN (Reason: shortness of breath or wheezing) Qty: 8.5 0RF mirtazapine 15 mg tablet 15 mg PO BEDTIME ibuprofen 200 mg Tablet 800 mg PO Q6H PRN (Reason: Pain) Discharge Orders: Discharge ED (Routine); Ordered 08/23/24 Ordered By: Mauri Godoy Referrals: Korey Keller, RECORDING STUDIO INTERN [Primary Care Provider] - Discharge Diet: Usual diet Discharge Activity: Resume usual activity Patient Instructions: Opioid Safety, Pain Management Activity Restrictions/Additional Instructions: Thank you for choosing [facility] for your healthcare needs today. It is very important that you follow up as instructed or that you return to the Emergency Department should you have concerns or if your condition changes or worsens in any way. Follow-up with neurology. Print Language: Czech Coding Level of Care Code ED Scientist Propagator for Maurisio Serrano
--- NOTE | 2024-08-23 15:44 | PC.PHAR ---
Pt unable to verify his medications. Phoned Fouzia HOFFMAN for current medications with last fill dates and day supply.
--- NOTE | 2024-08-23 15:49 | PC.NURSE ---
Nurse was in room, pt did not know nurse was in room. pt had tremors in bed but looking at door. pt was blinking and looking at door. pt stopped having tremors and was laying in bed, pt realized then nurse was in room. pt then asked what happened and where am i? pt was not postictal.
[2024-08-23 16:07] VITALS: BP 127/77; PULSE 101; O2SAT 94
[2024-08-23 16:17] VITALS: BP 127/77; PULSE 73; O2SAT 98
== END 2024-08-23 16:17 | disposition home or self-care (01) ==
PROVIDERS: Emergency Provider Family Medicine; PCP Clinical Nurse Specialist Adult Health
DX: G40.89 Other seizures (principal); Z79.82 Long term (current) use of aspirin; F17.290 Nicotine dependence, other tobacco product, uncomplicated; F17.210 Nicotine dependence, cigarettes, uncomplicated
CPT/HCPCS: 36416; 82962; 93005; 99284

== ENCOUNTER 2025-04-28 10:55 | Emergency (ER) | payer SELFPAY ==
[2025-04-28 11:01] VITALS: BMI 33.1
[2025-04-28 11:16] LABS: Hematocrit 46.6 % (37-53); Hemoglobin 16.10 g/dL (11.27-16.99); Mean Corpuscular HGB Conc 34.5 g/dL (30-55); Mean Corpuscular Hemoglobin 29.6 pg (27-33); Mean Corpuscular Volume 85.7 fl (82-101); Nucleated Red Blood Cells % 0 %; Platelet Count 201 10^3/cmm (157-399); Red Blood Count 5.44 10^6/uL (3.85-5.65); White Blood Count 6.61 10^3/uL (3.29-11.43)
[2025-04-28 11:32] VITALS: BP 120/83; PULSE 91; RESP 16; TEMP 36.8; O2SAT 97
[2025-04-28 11:37] LABS: Alanine Aminotransferase 61 U/L (0-41); Albumin Level 4.8 g/dL (3.5-5.2); Alkaline Phosphatase 86 U/L (40-130); Anion Gap 24.3 (5-19); Aspartate Amino Transferase 33 U/L (0-40); Blood Urea Nitrogen 14 mg/dL (6-20); Calcium 9.6 mg/dL (8.5-10.5); Carbon Dioxide 18 mmol/L (22-29); Chloride 100 mmol/L (98-107); Creatinine Clr Calc Pharmacy 96.9431; Globulin 2.2 g/dL (1.3-4.6); Glucose 100 mg/dL (65-115); Magnesium 2.2 mg/dL (1.7-2.3); Osmolality Calculated 289 mOsm/kg (285-295); Potassium 3.3 mmol/L (3.5-5.1); Sodium 139 mmol/L (136-145); Total Protein 7.0 g/dL (6.6-8.7)
--- NOTE | 2025-04-28 11:42 | W.ED.SEIZURE ---
HPI - Seizure General: Chief Complaint: Seizure Stated Complaint: seizure like with tremors Time Seen by Provider: 04/28/25 11:10 History of Present Illness: HPI Narrative: 30-year-old male presents emergency room with report of seizure-like activity. And tremors. Patient tells me that he has a history of psychogenic seizures in the past he sees Dr. Dumont regularly. Reviewing his chart previous notes are consistent with that. He is on lamotrigine and topiramate. He has not missed any medications recently denies any drug or alcohol use. Seizure History: Yes Associated symptoms: Deny chest pain, chills or fever(s) Related Data Home Medications ?Medication ?Instructions ?Recorded ?Confirmed ibuprofen 200 mg tablet 800 mg PO Q6H PRN Pain 10/23/21 12/29/24 aspirin 81 mg tablet,delayed 162 mg PO QAM 02/16/23 12/29/24 release Previous Rx's ?Medication ?Instructions ?Recorded albuterol sulfate 90 mcg/actuation 2 inh inhalation Q4H PRN shortness 06/06/24 aerosol inhaler (Ventolin HFA) of breath or wheezing #8.5 grams clonazepam 0.5 mg tablet 0.5 mg PO QAM 90 days #90 tabs 12/29/24 topiramate 100 mg tablet (Topamax) 100 mg PO BEDTIME #90 tabs 12/29/24 lamotrigine 100 mg tablet 100 mg PO BID 90 days #270 tabs 01/19/25 (Lamictal) mirtazapine 15 mg tablet See Rx Instructions .Route 03/21/25 .COMPLEX #90 tabs Allergies Allergy/AdvReac Type Severity Reaction Status Date / Time Latex, Natural Rubber Allergy ADR-Itching Verified 12/29/24 13:55 Review of Systems Const: Denies: fever(s) or chills Card: Denies: chest pain Resp: Denies: dyspnea GI: Denies: abdominal pain : Denies: dysuria, urinary frequency or urinary urgency Musc: Denies: neck pain or back pain Skin/Breast: Denies: rash PFSH ED PFSH: Medical History GERD (gastroesophageal reflux disease) Psychogenic nonepileptic seizure Epilepsy Surgical History History of appendectomy Social History Smoking and tobacco/nicotine status: current every day tobacco/nicotine user (tobacco 1/2 pack weekly. Vapes daily) cigarettes Alcohol intake: never Substance/Drug Use: never Physical Exam Const: COMMON NORMALS: no acute distress GENERAL APPEARANCE: cooperative and comfortable ORIENTATION/CONSCIOUSNESS: Yes awake, Yes oriented to person, Yes oriented to place and Yes oriented to time HENMT: COMMON NORMALS: normocephalic, atraumatic and hearing grossly normal bilaterally HEAD & SCALP: normocephalic and atraumatic Resp: COMMON NORMALS: normal respiratory effort, No retractions, No use of accessory muscles and clear to auscultation bilaterally AUSCULTATION: clear to auscultation bilaterally Cardio: COMMON NORMALS: regular rate, regular rhythm and No murmurs present (Cardio) RATE: regular rate RHYTHM: regular rhythm GI: COMMON NORMALS: Soft to palpation and No hepatosplenomegaly present AUSCULTATION: Yes normoactive bowel sounds PALPATION: Yes Soft to palpation, No Tenderness to palpation present (GI), No Guarding due to palpation present (GI) and Yes No hepatosplenomegaly present Extremity: COMMON NORMALS: normal to inspection, capillary refill normal, no clubbing, cyanosis or edema, no calf tenderness and no pedal edema Neuro: SENSORIUM/ORIENTATION: Yes oriented to person, Yes oriented to place and Yes oriented to time Skin: COMMON NORMALS: no rashes or lesions noted GENERAL SKIN EXAM: no rashes or lesions noted Course Vital Signs: Vital signs: Vital Signs Temperature 98.2 F 04/28/25 11:32 Pulse Rate 88 04/28/25 11:48 Respiratory Rate 16 04/28/25 11:32 Blood Pressure 122/73 04/28/25 11:48 Pulse Oximetry 94 04/28/25 11:48 Oxygen Delivery Me thod Room Air 04/28/25 11:32 MDM - Seizure MDM Narrative Medical decision making narrative: Patient states this is one of his pseudoseizures he has had them in the past he does not want any lab work he does not want any further evaluation request is to be allowed to go home. We did have some blood drawn already CBC was unremarkable reviewed his chart previous documentation consistent with a history he described. Will discharge home per his wishes return if he has further problems Lab Data 04/28/25 10:42 04/28/25 10:42 Labs: Laboratory Results WBC 6.61 10^3/uL (3.29-11.43) 04/28/25 10:42 RBC 5.44 10^6/uL (3.85-5.65) 04/28/25 10:42 Hgb 16.10 g/dL (11.27-16.99) 04/28/25 10:42 Hct 46.6 % (37-53) 04/28/25 10:42 MCV 85.7 fl (82-101) 04/28/25 10:42 MCH 29.6 pg (27-33) 04/28/25 10:42 MCHC 34.5 g/dL (30-55) 04/28/25 10:42 RDW 12.1 % (12.1-15.1) 04/28/25 10:42 Plt Count 201 10^3/cmm (157-399) 04/28/25 10:42 MPV 10.1 fL (7.4-10.4) 04/28/25 10:42 Neut % (Auto) 51.4 % 04/28/25 10:42 Lymph % (Auto) 36.2 % 04/28/25 10:42 [place] % (Auto) 9.8 % 04/28/25 10:42 Eos % (Auto) 1.5 % 04/28/25 10:42 Baso % (Auto) 0.8 % 04/28/25 10:42 Neut # (Auto) 3.40 10^3/uL (1.8-7.7) 04/28/25 10:42 Lymph # (Auto) 2.4 10^3/uL (0.8-4.8) 04/28/25 10:42 [place] # (Auto) 0.7 10^3/uL (0.2-0.9) 04/28/25 10:42 Eos # (Auto) 0.1 10^3/uL (0.0-0.8) 04/28/25 10:42 Baso # (Auto) 0.1 10^3/uL (0.0-0.1) 04/28/25 10:42 Nucleated RBC % (auto) 0 % 04/28/25 10:42 Nucleated RBCs # 0.0 /100WBC 04/28/25 10:42 Sodium 139 mmol/L (136-145) 04/28/25 10:42 Potassium 3.3 mmol/L (3.5-5.1) L 04/28/25 10:42 Chloride 100 mmol/L (98-107) 04/28/25 10:42 Carbon Dioxide 18 mmol/L (22-29) L 04/28/25 10:42 Anion Gap 24.3 (5-19) H 04/28/25 10:42 BUN 14 mg/dL (6-20) 04/28/25 10:42 Creatinine 1.5 mg/dL (0.7-1.2) H 04/28/25 10:42 GFR Calculation 55.7 mL/min (90-130) L 04/28/25 10:42 Glucose 100 mg/dL (65-115) 04/28/25 10:42 Calculated Osmolality 289 mOsm/kg (285-295) 04/28/25 10:42 Calcium 9.6 mg/dL (8.5-10.5) 04/28/25 10:42 Magnesium 2.2 mg/dL (1.7-2.3) 04/28/25 10:42 Total Bilirubin 0.9 mg/dL (0.15-1.2) 04/28/25 10:42 AST 33 U/L (0-40) 04/28/25 10:42 ALT 61 U/L (0-41) H 04/28/25 10:42 Alkaline Phosphatase 86 U/L (40-130) 04/28/25 10:42 Total Protein 7.0 g/dL (6.6-8.7) 04/28/25 10:42 Albumin 4.8 g/dL (3.5-5.2) 04/28/25 10:42 Globulin 2.2 g/dL (1.3-4.6) 04/28/25 10:42 No radiology studies performed this visit Discharge Plan Discharge Patient Disposition: Home 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 Condition: Stable Prescriptions: No Action Topamax 100 mg tablet 100 mg PO BEDTIME Qty: 90 3RF clonazepam 0.5 mg tablet 0.5 mg PO QAM 90 Days Qty: 90 3RF Lamictal 100 mg tablet 100 mg PO BID 90 Days Qty: 270 1RF Rx Instructions: 100 mg AM and 200 mg PM mirtazapine 15 mg tablet See Rx Instructions .ROUTE .COMPLEX Qty: 90 3RF Dose Instruction: TAKE 1 TABLET BY MOUTH AT BEDTIME Rx Instructions: TAKE 1 TABLET BY MOUTH AT BEDTIME aspirin [Aspir-81] 81 mg Tablet,Delayed Release (Dr/Ec) 162 mg PO QAM albuterol sulfate [Ventolin HFA] 90 mcg/actuation HFA aerosol inhaler 2 inh inhalation Q4H PRN (Reason: shortness of breath or wheezing) Qty: 8.5 0RF ibuprofen 200 mg Tablet 800 mg PO Q6H PRN (Reason: Pain) Discharge Orders: Discharge ED (Routine); Ordered 04/28/25 Ordered By: Mauri Godoy Referrals: Korey Keller, SUPERINTENDENT CEMETERY [Primary Care Provider, Family Practice] Discharge Diet: Usual diet Discharge Activity: Resume usual activity Patient Instructions: Opioid Safety, Pain Management, Patient Portal & Isabel Instructions Activity Restrictions/Additional Instructions: Thank you for choosing [facility] for your healthcare needs today. It is very important that you follow up as instructed or that you return to the Emergency Department should you have concerns or if your condition changes or worsens in any way. Emergency department visits are focused on emergent conditions, in some cases you may require further evaluation on an outpatient basis. You were seen in the emergency room after a functional neurologic event. You have reviewed these in the past with Dr. Dumont there is no need for medication changes or further evaluation. Follow-up with her in the office as previously scheduled. (Please note that included in your discharge packet is information concerning opioid safety and pain management. This information is given to all patients were discharged from the ER regardless of their discharge diagnosis or the medicines they usually take or are prescribed.) Print Language: Japanese Coding Level of Care Code ED Needle Punch Machine Operator Helper for Maurisio Serrano
[2025-04-28 11:48] VITALS: BP 122/73; PULSE 88; O2SAT 94
--- OUTSIDE RECORDS SUMMARY | 2025-04-28 12:18 | XMS_ITS | Patient Health Record ---
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 CIR SONU 0002 CORNELL FRAIRE [id number] SiterRakesh Self - patient is the insured 0 [facility] COMM[employer] PLAN [address] [place], [place] [id number] SiterRakesh Self - patient is the insured 8 [phone]
--- OUTSIDE RECORDS SUMMARY | 2025-04-28 12:18 | XMS_ITS | Patient Health Record ---
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 Phone Juan Coto APN Primary Care Provider Unavail able Ariane Walter Unavailable [phone] Reason For Referral No Information Medications Medication SIG (Take, Route, Frequency, Duration) Notes Start Date End Date Status Continue meds as prescrbed by your PCP as directed *Reorder from Med[employer]pan for eRx and Interaction Alerts* 11/08/2015 Active Citalopram Hydrobromide *Pick strength-form from [employer] for eRX* Active Continue meds as prescrbed by your PCP *Reorder from [employer] for eRx and Interaction Alerts* Active Social History Social History Additional Details Category Social Info Options Details Migrated Social History Tobacco Use: (Tobacco use other than smoking:): Are you an other tobacco user? No (Tobacco Use/Smoking): Are you a: current smoker , How often do you smoke cigarettes?: every day, How many cigarettes a day do you smoke?: 6-10, How soon after you wake up do you smoke your first cigarette?: 31-60 minutes, Are you interested in quitting?: Not ready to quit Section Notes: ETOH-none Current smoker No illicit drug use Problems Problem Type SNOMED Code ICD Code Onset Dates Problem Status W/U Status Risk Notes Problem Appendicitis (87585035) Unspecified appendicitis (K37) Active confirmed Plan Of Treatment No Information Medical (General) History Medical History History ICD Code Appendicitis Bipolarism Pseudoseizures Surgical History Surgery Date(Month/Year) Laparoscopy appendectomy 2016 Hospitalization History Reason Date(Month/Year) See PSH
--- OUTSIDE RECORDS SUMMARY | 2025-04-28 12:18 | XMS_ITS | Data Portability ---
Author Organization [facility] Ariana Herman, [facility] Address [facility] [address] Assessment Encounter Date Assessment Date Assessment LastModified by Organization Details LastModified Time 02/11/2023 02/11/2023 Patient may be having an arrhythmia leading to the patient's symptoms. Recommend Holter monitor since he is having symptoms almost daily. Patient was encouraged to establish with PCP for follow-up. Patient was reassured that it is not likely to be pericarditis given his normal labs and EKGs. [email or web address] Not available 02/11/2023 14:46:03 Plan of Treatment Reminders Order Date Submit Date Provider Last Modified By Organization Details Last Modified Time Details Appointments None recorded. Lab None recorded. Referral None recorded. Procedures None recorded. Surgeries None recorded. Imaging holter monitor [id number] [email or web address] [facility] (Scheduling Orders), [address] [place], [address], 3 14:02:57 Medication Orders None recorded. Patient TargetsNo targets recorded. Patient InstructionsNo instructions recorded. Reason for Referral None Reported. Problems Name Problem SNOMED Code Status Onset Date Resolution Date Notes Provider Name and Address Organization Details Recorded Time Pericarditis 2674412 [facility] 14:15:53 Seizure 01187253 [facility] 20[facility] 14:16:02 Intermittent palpitations 667353687 Active 2022 Zay Valles MD [address] [place], [address], [facility], Ariana 3 14:31:32 Tight chest 95386256 Active 2022 Zay Valles MD [address] [place], [address], [facility], Ariana 3 14:31:39 Problem Notes None recorded. Medical Equipment None Reported. Allergies No known drug allergies Medications Name Sig Start Date Stop Date Status Note LastModified by Organization Details LastModified Time azithromy marin 250 mg tablet qd 02/11 completed As directed . SHANICE/AB; Recorded 11/22/19 21 2:57PM by Brandy Bagley LPN, Phone Encounte r; Refill Quantity : 0; Not Available Not Available Not Available Zofran 4 mg tablet tid prn 02/11 completed Recorded 11/22/19 21 12:50PM by Brandy Bagley LPN, Phone Encounte r; Refill Quantity : 0; Not Available Not Available Not Available aspirin 81 mg chewable tablet Chew 2 tablets every day by oral route. active Not Available Not Available No t Available prednison e active Not Available Not Available Not Available Lamictal active Not Available Not Avai lable Not Available Vitals Date Recorded Respiratory rate Body height Body mass index (BMI) Body weight Body temperature Heart rate Oxygen saturation Oxygen saturation in Arterial blood by Pulse oximetry Systolic And Diastolic Provider Name and Address Organization Details Last Updated DateTime 3 20 /min 185.42 cm 30.9 kg/m2 814073. 31 g 97.6 [degF] 87 /min 98 % 98 % 110/64 mm[Hg] JESUS SCHWARTZ [facility], [place] 3 14:17:56 Social History None recorded. Functional Status None recorded. Mental Status None recorded. Family History Nothing Reported. Medical History No medical history recorded. Past Encounters Encounter ID Performer Location Encounter Start Date Encounter Closed Date Diagnosis/Indication Diagnosis SNOMED-CT Code Diagnosis ICD10 Code Diagnosis IMO Codes Diagnosis Note [id number] Zay Valles MD [facility] ([facility] [address] [place] [address] 02/11/2023 13:55:27 02/11/2023 14:46:21 Intermittent palpitations 436168384 R00.2 Tight chest 56364195 R07 .89 Health Concerns Section Related Observation LastModified by Organization Detai ls LastModified Time None Recorded Concern Status LastModified by Organization Details LastModified Time None Recorded Advance Directives Directive None Recorded Payers Insurance Date Sequence Insurance Name Policy Number Policy Gleason Covered Member ID Gleason Member ID Guarantor Name 03/12/2023 1 [facility] [employer] (PPO) [id number] [employer] Siter [id number] [employer] Siter Notes Date Note Type Note Provider Name and Address Organization Details Recorded Time 02/11/2023 text/html This is a. 27 y/o that presents today for evaluation. Occurring almost daily. Seizure history. This is a 27-year-old presents today with recurrent chest pain. Patient states that he has been having chest pain off and on for weeks. Patient states that it becomes more frequent and is almost daily. Patient reports chest tightness and sharp stabbing pain. Patient reports sometimes it feels like his heart is going to beat out of his chest. Patient states that he has shortness of breath with it. The patient has a history of pericarditis and was concerned that this was what it was. He was seen in the emergency department, however his inflammatory markers were negative. Patient had 2 normal EKGs. Zay Valles MD [address] [place], [address], [facility], LRenee 02/11/2023 14:46:15
== END 2025-04-28 11:54 | disposition home or self-care (01) ==
PROVIDERS: Emergency Provider Family Medicine; PCP Clinical Nurse Specialist Adult Health
DX: F44.5 Conversion disorder with seizures or convulsions (principal); Z79.82 Long term (current) use of aspirin; F17.210 Nicotine dependence, cigarettes, uncomplicated; F17.290 Nicotine dependence, other tobacco product, uncomplicated
CPT/HCPCS: 80053; 83735; 85025; 99283